=== PATIENT | male | born 1950 | race Caucasian/White ===

== ENCOUNTER 2022-01-10 10:49 | Outpatient (CLI) | payer MEDICARE, SELFPAY ==
--- NOTE | ~2022-01-10 | US_ITS ---
US renal BI 01/10/2022 11:18 Procedure: Realtime transabdominal ultrasound of the kidneys and bladder. Indication: Chronic renal disease Comparison: No prior studies for comparison. Findings: Renal echotexture is normal bilaterally without hydronephrosis, contour deforming mass or r enal calculus. The right kidney measures 9.7 cm and left kidney measures 10.9 cm. Bladder within nor mal limits. Mildly enlarged prostate gland. Impression: 1: Unremarkable renal ultrasound. No stones, masses or hydronephrosis. 2: Enlarged prostate gland. Reviewed, dictated and finalized at location A. Impression: 1: Unremarkable renal ultrasound. No stones, masses or hydronephrosis. 2: Enlarged prostate gland.
== END 2022-01-10 10:50 | disposition home or self-care (01) ==
PROVIDERS: PCP Family Medicine; Visit Provider Nurse Practitioner Gerontology
DX: N18.9 Chronic kidney disease, unspecified (principal); N40.0 Benign prostatic hyperplasia without lower urinary tract symptoms
CPT/HCPCS: 76775

== ENCOUNTER 2022-06-01 09:16 | Outpatient (CLI) | payer MEDICARE, SELFPAY ==
--- NOTE | ~2022-06-01 | XR_ITS ---
Left Knee Technique: AP, lateral, and sunrise views were obtained. Clinical History: Pain Findings: No fracture or dislocation is seen. There is mild tricompartmental degenerative change. The re is enthesopathic change at the proximal patellar tendon. No joint effusion is seen. Impression: Mild tricompartmental degenerative change. Reviewed, dictated and finalized at location . SPORTATION DIRECTOR Impression: Mild tricompartmental degenerative change.
== END 2022-06-01 09:17 | disposition home or self-care (01) ==
PROVIDERS: PCP Family Medicine; Visit Provider Family Medicine
DX: M25.569 Pain in unspecified knee (principal); R93.6 Abnormal findings on diagnostic imaging of limbs
CPT/HCPCS: 73562

== ENCOUNTER → 2022-08-09 09:52 | Outpatient (CLI) | payer MEDICARE, SELFPAY ==
--- NOTE | ~2022-08-09 | US_ITS ---
Renal-Bladder ultrasound Clinical History: Chronic kidney disease Technique: Real-time sonographic imaging of the kidneys and urinary bladder was performed. Findings: The right kidney measures 10.4 cm in length and the left kidney measures 9.8 cm. There is n o hydronephrosis or renal calculus identified. Renal cortical echogenicity is within normal limits. N o renal mass lesion is identified. The urinary bladder is moderately distended at the time of this exam. No intraluminal echoes are iden tified. No abnormal wall thickening is seen. Prostate gland is enlarged. Impression: Unremarkable ultrasound of the kidneys and urinary bladder. Enlarged prostate gland. Reviewed, dictated and finalized at location M. Impression: Unremarkable ultrasound of the kidneys and urinary bladder. Enlarged prostate gland.
== END ==
PROVIDERS: PCP Family Medicine; Visit Provider Internal Medicine Nephrology
DX: N18.31 Chronic kidney disease, stage 3a (principal); N40.0 Benign prostatic hyperplasia without lower urinary tract symptoms
CPT/HCPCS: 76775

== ENCOUNTER 2023-02-12 14:34 | Outpatient (CLI) | payer MEDICARE, SELFPAY ==
--- NOTE | ~2023-02-12 | CT_ITS ---
EXAMINATION: CT LE LT wo con DATE: 02/12/2023 15:26 INDICATION: Left knee osteoarthritis. Preoperative planning. TECHNIQUE: Computed tomography (CT) of the left lower limb was performed without intravenous contrast . Automated exposure control and iterative reconstruction technique were employed. The dose-length pr oduct was 1941.01 mGy-cm. COMPARISON: Left knee radiographs 02/07/2023 FINDINGS: The prostate is moderately enlarged. Left hip demonstrates normal bone alignment. No fractu re. There is moderate left hip osteoarthritis. Left knee demonstrates varus angulation. There is ninoska re tricompartmental osteoarthritis. There is a small knee joint effusion. There is a moderate-sized B jay's cyst. There is mild Achilles tendinopathy. IMPRESSION: 1. Severe left knee osteoarthritis. 2. Small left knee joint effusion. 3. Modest sized left Burns's cyst. 4. Moderate left hip osteoarthritis. Reviewed, dictated and finalized at location E.
[2023-02-12 16:47] LABS: Hematocrit 34.1 % (42.0-52.0); Hemoglobin 10.7 g/dL (14.0-18.0)
[2023-02-12 16:56] LABS: Albumin Level 4.5 g/dL (3.5-5.1); Estimated Glomerular Filt Rate 33
== END 2023-02-12 14:35 | disposition home or self-care (01) ==
LOC: ANHIMG 14:46
PROVIDERS: PCP Family Medicine; Visit Provider Orthopaedic Surgery
DX: M17.0 Bilateral primary osteoarthritis of knee (principal); M25.462 Effusion, left knee; M71.22 Synovial cyst of popliteal space [Baker], left knee; M16.12 Unilateral primary osteoarthritis, left hip; E11.22 Type 2 diabetes mellitus with diabetic chronic kidney disease; I12.9 Hypertensive chronic kidney disease with stage 1 through stage 4 chronic kidney disease, or unspecified chronic kidney disease; N18.32 Chronic kidney disease, stage 3b
CPT/HCPCS: 36415; 73700; 82040; 82565; 85014; 85018

== ENCOUNTER 2023-03-13 00:37 | Day surgery (SDC) | payer MEDICARE, SELFPAY ==
[2023-02-27 11:27] VITALS: BMI 28.0
--- NOTE | 2023-03-09 14:42 | SUR.PREOP ---
Patient called regarding upcoming procedure. Reviewed preop instructions, appointment times, and procedure prep.
[2023-03-13 11:20] VITALS: BP 199/75; PULSE 85; RESP 18; TEMP 36.2; O2SAT 98
--- NOTE | 2023-03-13 11:24 | WPDANESEPPF ---
Anes - Initial Pre Proc Eval Procedure: Operation Date: 03/13/23 12:30 Proposed Procedures p Esophagogastroduodenoscopy & Colonoscopy - Horacio Coelho MD Date/Time: 03/13/23 11:24 Surgeon: Horacio Coelho MD Pre Op Diagnosis: anemia Patient Data Age: 72 Gender: M Height: 1.75 m Weight: 85.9 kg Last Vital Signs Temp 97.2 F L 03/13/23 11:20 Pulse 85 03/13/23 11:20 Resp 18 03/13/23 11:20 BP 199/75 H 03/13/23 11:20 Pulse Ox 98 03/13/23 11:20 O2 Del Method Room Air 03/13/23 11:20 Allergies Allergy/AdvReac Type Severity Reaction Status Date / Time No Known Allergies Allergy Verified 03/13/23 11:18 Home Medications Medication Instructions Recorded Confirmed Type aspirin 81 mg tablet,delayed 81 mg PO DAILY 06/10/19 02/27/23 History release (Adult Low Dose Aspirin) atorvastatin 20 mg tablet 20 mg PO DAILY #100 tabs 06/23/22 02/27/23 Rx irbesartan 300 mg tablet 300 mg PO DAILY #30 tabs 12/12/22 02/27/23 Rx tamsulosin 0.4 mg capsule 0.4 mg PO QHS #30 caps 12/12/22 02/27/23 Rx levothyroxine 75 mcg tablet 75 mcg PO DAILY #100 tabs 01/01/23 02/27/23 Rx (Euthyrox) metformin 500 mg tablet 500 mg PO BID #180 tabs 01/30/23 02/27/23 Rx cholecalciferol (vitamin D3) 1,250 50,000 unit PO WEEKLY #14 caps 02/12/23 02/27/23 Rx mcg (50,000 unit) capsule polysaccharide iron complex 150 mg 150 mg PO DAILY #30 caps 02/19/23 02/27/23 Rx iron capsule (Poly-Iron) chlorthalidone 25 mg tablet 25 mg PO DAILY 02/27/23 02/27/23 History glimepiride 1 mg tablet 1 mg PO BID 02/27/23 02/27/23 History hydralazine 100 mg tablet 100 mg PO BID 02/27/23 02/27/23 History metoprolol succinate 50 mg 50 mg PO DAILY 02/27/23 02/27/23 History tablet,extended release 24 hr amlodipine 5 mg tablet 5 mg PO .in PM #30 tabs 03/05/23 03/13/23 Rx dutasteride 0.5 mg capsule 0.5 mg PO .pm #30 caps 03/05/23 03/13/23 Rx Patient hx anesthesia problems: none Family hx anesthesia problems: none Results Review: All pre-operative results and documents have been reviewed as part of the pre-operative evaluation. [facility] Past Medical History Medical History Arthropathies Benign essential HTN Bilateral cataracts Controlled diabetes mellitus with hyperglycemia Dyslipidemia History of blood clots Hyperlipidemia Surgical History Surgical History History of appendectomy History of umbilical hernia repair Family History Family History Father Acute myocardial infarction, Onset Age: 70 Mother Hypertension Other Diabetes mellitus Social History Social History Social History: Smoking status: Never smoker Second hand tobacco smoke exposure: No Alcohol intake: never Substance use: never Substance use type: does not use Lack of Transportation: No Lack of Food: Never True Current Housing: I Have Housing Concerned About Future Housing: No Difficulty Paying Gas/Electric Bills: No Difficulty Paying for Meds: No Currently Unemployed: No Education: High School Diploma/GED Difficulty w/ Childcare or Family Care: No Living arrangements: with family Occupation/Education: retired Gender identity (if verbalized by the patient): Male Sexual Orientation (if Verbalized by the Patient): Straight or Heterosexual Spiritual care concerns: No Anes - Eval Final PreProcedure Day of Procedure 03/13/23 11:24 Patient weight: normal Heart: regular rate and rhythm Lungs: clear to auscultation Airway: Mallampati scale class II Neurological: alert and oriented Last oral intake: >/= 8 hours ASA classification: III Emergent: no Anesthetic plan: proceed Anesthesia type and monitoring: general GIVS and standard monitoring Results Review: All pre-op
[2023-03-13] MEDS: LACTATED RINGERS 1,000 ML 150 ML IV CONT (11:29)
--- NOTE | 2023-03-13 11:53 | PM.HPGS ---
History of Present Illness History of Present Illness Consent: Risks, benefits, and alternatives have been discussed and questions answered. Patient agrees to proceed with procedure. Chief complaint: anemia Narrative: Reilly Jarvis Jr. is a 72 year old male with recent anemia, hgb ~ 10, no overt gib, last colonoscopy about 6 years ago, never had egd Review of Systems Constitutional: Constitutional: Denies headache(s) and Denies weakness Eyes: Eyes: Denies blurry vision ENT: Reports Normal hearing present, Denies headache(s) and Denies neck pain Cardiovascular: Cardiovascular: Denies chest pain and Denies dyspnea Respiratory: Respiratory: Denies dyspnea Gastrointestinal: Gastrointestinal: Reports no additional gastrointestinal complaints Genitourinary: Genitourinary: Denies dysuria Musculoskeletal: Musculoskeletal: Denies neck pain Integumentary/Breasts: Skin/Breast: Denies dry skin Neurologic: Reports Normal hearing present, Denies headache(s) and Denies weakness Psychiatric: Psychiatric: Denies anxiety Endocrine: Endocrine: Denies change in body appearance Hematologic/Lymphatic: Hematologic/Lymphatic: Denies easy bleeding Allergic/Immunologic: Allergic/Immunologic: Denies urticaria PMFSH Past Medical History Medical History (Updated 03/13/23 @ 11:54 by Horacio Coelho MD) Anemia Arthropathies Benign essential HTN Bilateral cataracts Controlled diabetes mellitus with hyperglycemia Dyslipidemia History of blood clots Hyperlipidemia Surgical History Surgical History History of appendectomy History of umbilical hernia repair Family History Family History Father Acute myocardial infarction, Onset Age: 70 Mother Hypertension Other Diabetes mellitus Social History Social History Social History: Smoking status: Never smoker Second hand tobacco smoke exposure: No Alcohol intake: never Substance use: never Substance use type: does not use Lack of Transportation: No Lack of Food: Never True Current Housing: I Have Housing Concerned About Future Housing: No Difficulty Paying Gas/Electric Bills: No Difficulty Paying for Meds: No Currently Unemployed: No Education: High School Diploma/GED Difficulty w/ Childcare or Family Care: No Living arrangements: with family Occupation/Education: retired Gender identity (if verbalized by the patient): Male Sexual Orientation (if Verbalized by the Patient): Straight or Heterosexual Spiritual care concerns: No Meds Home Medications and Allergies Home Medications Medication Instructions Recorded Confirmed Type aspirin 81 mg tablet,delayed 81 mg PO DAILY 06/10/19 02/27/23 History release (Adult Low Dose Aspirin) atorvastatin 20 mg tablet 20 mg PO DAILY #100 tabs 06/23/22 02/27/23 Rx irbesartan 300 mg tablet 300 mg PO DAILY #30 tabs 12/12/22 02/27/23 Rx tamsulosin 0.4 mg capsule 0.4 mg PO QHS #30 caps 12/12/22 02/27/23 Rx levothyroxine 75 mcg tablet 75 mcg PO DAILY #100 tabs 01/01/23 02/27/23 Rx (Euthyrox) metformin 500 mg tablet 500 mg PO BID #180 tabs 01/30/23 02/27/23 Rx cholecalciferol (vitamin D3) 1,250 50,000 unit PO WEEKLY #14 caps 02/12/23 02/27/23 Rx mcg (50,000 unit) capsule polysaccharide iron complex 150 mg 150 mg PO DAILY #30 caps 02/19/23 02/27/23 Rx iron capsule (Poly-Iron) chlorthalidone 25 mg tablet 25 mg PO DAILY 02/27/23 02/27/23 History glimepiride 1 mg tablet 1 mg PO BID 02/27/23 02/27/23 History hydralazine 100 mg tablet 100 mg PO BID 02/27/23 02/27/23 History metoprolol succinate 50 mg 50 mg PO DAILY 02/27/23 02/27/23 History tablet,extended release 24 hr amlodipine 5 mg tablet 5 mg PO .in PM #30 tabs 03/05/23 03/13/23 Rx dutasteride 0.5 mg capsule 0.5 mg PO .pm #30 caps 03/05/23 03/13/23 R
[2023-03-13 11:55] LABS: Glucose Point of Care 108 mg/dl (65-105)
--- NOTE | 2023-03-13 12:13 | SUR.OPER ---
EGD START: 1200; END: 1207. COLONOSCOPY START: 1212; END: 1221.
--- NOTE | 2023-03-13 12:25 | SUR.OPER ---
DESCENDING COLON POLYP NOT RETRIEVED. DR CROWELL AWARE. ML, RN RS, RN
[2023-03-13 12:27] VITALS: BP 117/67; PULSE 67; RESP 14; O2SAT 96
[2023-03-13 12:37] VITALS: BP 126/76; PULSE 68; RESP 13; O2SAT 96
[2023-03-13 12:47] VITALS: BP 151/86; PULSE 64; RESP 16; O2SAT 100
== END 2023-03-13 13:01 | disposition home or self-care (01) ==
PROVIDERS: PCP Family Medicine; Visit Provider Internal Medicine Gastroenterology
PROC: 0DJ08ZZ Inspection of Upper Intestinal Tract, Via Natural or Artificial Opening Endoscopic (ICD-10-PCS; CPT 43235; principal; 2023-03-13 12:30)
DX: D64.9 Anemia, unspecified (principal); K22.70 Barrett's esophagus without dysplasia; D12.3 Benign neoplasm of transverse colon; K57.30 Diverticulosis of large intestine without perforation or abscess without bleeding; K64.8 Other hemorrhoids; K21.00 Gastro-esophageal reflux disease with esophagitis, without bleeding; K44.9 Diaphragmatic hernia without obstruction or gangrene; Q27.33 Arteriovenous malformation of digestive system vessel; I10 Essential (primary) hypertension; E11.65 Type 2 diabetes mellitus with hyperglycemia; E78.5 Hyperlipidemia, unspecified; Z90.89 Acquired absence of other organs; Z79.82 Long term (current) use of aspirin; Z79.84 Long term (current) use of oral hypoglycemic drugs; Z86.718 Personal history of other venous thrombosis and embolism; Z82.49 Family history of ischemic heart disease and other diseases of the circulatory system
CPT/HCPCS: 43239; 43270; 45385; 82948; 88305; J2001; J2704; J7120

== ENCOUNTER 2023-04-02 11:33 | Outpatient (CLI) | payer MEDICARE, SELFPAY ==
[2023-04-02 13:06] LABS: Basophils Absolute Auto 0.1 K/mm3 (0.0-0.1); Basophils Percent Auto 0.6 % (0.2-1.2); Eosinophils Absolute Auto 0.2 K/mm3 (0-0.3); Eosinophils Percent Auto 1.7 % (0-4.4); Hemoglobin 11.7 g/dL (14.0-18.0); Immature Granulocyte Absolute 0.03 K/mm3 (0.00-0.031); Immature Granulocyte Percent A 0.3 % (0-0.5); Lymphocytes Absolute Auto 1.14 K/mm3 (0.9-3.2); Mean Corpuscular HGB Conc 31.6 g/dl (32-36); Mean Corpuscular Volume 91.8 fl (80-100); Mean Platelet Volume 11.6 fl (7.4-10.4); Monocytes Absolute Auto 0.8 K/mm3 (0.1-0.6); Neutrophils Absolute Auto 7.4 K/mm3 (1.3-6.7); Neutrophils Percent Auto 77.4 % (45.5-73.1); Platelet Count Result 231 k/mm3 (150-375); Red Blood Count 4.03 M/mm3 (4.6-6.20); Red Cell Distribution Width 12.8 % (11.5-14.5); White Blood Count 9.5 K/mm3 (4.5-10.0)
[2023-04-02 13:16] LABS: Anion Gap 9 mmol/L (8-16); Blood Urea Nitrogen 37 mg/dL (9-20); Calcium 9.8 mg/dL (8.4-10.2); Carbon Dioxide 26 mmol/L (22-30); Chloride 103 mmol/L (98-107); Estimated Glomerular Filt Rate 37; Glucose 138 mg/dL (65-110); Potassium 4.8 mmol/L (3.4-5.0); Sodium 138 mmol/L (137-145)
[2023-04-02 13:18] LABS: Albumin Level 4.7 g/dL (3.5-5.1)
[2023-04-02 13:20] LABS: Hemoglobin A1C 5.7 % (<5.7); Prothrombin Time 13.4 Seconds (11.1-14.7)
[2023-04-02 13:21] LABS: Partial Thromboplastin Time 28.9 SECONDS (22.3-36.8)
[2023-04-02 13:29] LABS: Urine Cotinine NEGATIVE
== END 2023-04-02 11:34 | disposition home or self-care (01) ==
PROVIDERS: Anesthesiology; PCP Family Medicine; Visit Provider Orthopaedic Surgery
DX: Z01.818 Encounter for other preprocedural examination (principal); M17.12 Unilateral primary osteoarthritis, left knee; E11.9 Type 2 diabetes mellitus without complications; N18.32 Chronic kidney disease, stage 3b
CPT/HCPCS: 80048; 80307; 82040; 83036; 85025; 85610; 85730; 87081

== ENCOUNTER 2023-04-26 00:57 | Day surgery (SDC) | payer MEDICARE, SELFPAY ==
[2023-04-02 11:56] VITALS: BMI 28.4
--- NOTE | 2023-04-02 12:16 | PC.NURSE ---
Report to the Outpatient Waiting Room, entrance under the green pavilion located off [facility], at time __0600 on date __04/26/23 . Planned Procedure Time: __07 . Time changes happen often and if your time is changed the preop area will call you the afternoon before. - You and your visitor will be asked to self-screen and do not enter if you have any COVID symptoms. - A mask is optional within the hospital at this time. Patients may have clear liquids (water, carbonated beverages, clear teas, apple juice) until 3 hours prior to surgery( 4:30 AM ) with a maximum of 20 ounces. - No food from midnight until time of surgery Take the following medications with a SIP of water the morning of surgery: __HYDRALAZINE,LEVOTHYROXINE,METOPROLOL DO NOT STOP ANY OF YOUR OTHER PRESCRIPTION MEDICATIONS PRIOR TO SURGERY ?EXCEPT THE FOLLOWING Medications to discontinue per physician __HOLD ASPIRIN 7 DAYS PRE OP PER DR FERNANDO .LAST DOSE 04/18/23 Please no make-up, nail bruneian, hairspray, perfume, deodorant, or body powder the day of surgery. No jewelry (including any body piercings) or valuables the day of surgery, leave them at home. Please take a shower or bath the night before, or the morning of, surgery with an antibacterial soap. Wear comfortable, loose fitting clothing. Children are encouraged to wear pajamas. - Jewelry must be removed prior to entering the operating room. Rings and piercings that are not removed may be cut off. - The hospital will not accept responsibility for valuables. - Please leave all valuables, including medications, at home the day of surgery. If you are going home after surgery, a licensed route sales delivery drivers supervisor must drive you home. - NO public transportation without another adult if you receive anesthesia. - We recommend that an adult stay with you for 24 hours following discharge. - We also recommend that you do not drive, make important decision, drink alcoholic beverages, or take any drugs that were not prescribed by your health care provider for at least 24 hours after your discharge time. For Pediatric surgeries, we recommend two adults accompany the child home. Follow any additional instructions given to you from your surgeon. If you or anyone in your household have experienced Covid symptoms in the past week, please notify your surgeon or the nurse liaison at the phone number below for possible testing. VERBAL AND WRITTEN instructions given to _PATIENT AND CAROL and asked if any additional questions and then verbalized understanding. Patient advised to call surgeon office or pre surgery nurse liaison [phone] if any additional questions.
[2023-04-02 12:39] VITALS: BP 157/65; PULSE 68; RESP 18; TEMP 36.6; O2SAT 99
[2023-04-26] VITALS (16 sets, daily range): BP systolic 103–160; BP diastolic 52–65; PULSE 71–89; RESP 12–20; TEMP 36.3–37.1; O2SAT 93–100
--- NOTE | ~2023-04-26 | XR_ITS ---
EXAMINATION: [id number] DATE: 04/26/2023 10:20 INDICATION: Postoperative evaluation following left total knee arthroplasty. TECHNIQUE: Anteroposterior and lateral views of the left knee were obtained. COMPARISON: None. FINDINGS: Left total knee arthroplasty without patellar resurfacing appears well seated. There is 7 degree varu s angulation of the axis of the tibia with respect to the axis of the tibial component of the arthrop lasty. No fractures identified. Prominent heterotopic ossicle at the proximal patellar tendon. Expect ed postoperative subcutaneous and intra-articular gas. IMPRESSION: 1. No fracture post left total knee arthroplasty. Reviewed, dictated and finalized at location A. AT CRYPTOLOGIC MANAGER
--- NOTE | 2023-04-26 06:45 | WPDANESEPPF ---
Anes - Initial Pre Proc Eval Procedure: Operation Date: 04/26/23 07:30 Proposed Procedures p Left Custom Total Knee Arthroplasty - Jorge L Sanford MD Date/Time: 04/26/23 06:45 Surgeon: Jorge L Sanford MD Pre Op Diagnosis: Prim O.A.Left Knee Patient Data Age: 72 Gender: M Height: 1.75 m Weight: 87.3 kg Last Vital Signs Temp 36.6 C 04/02/23 12:39 Pulse 68 04/02/23 12:39 Resp 18 04/02/23 12:39 BP 157/65 H 04/02/23 12:39 Pulse Ox 99 04/02/23 12:39 O2 Del Method Room Air 04/02/23 12:39 Allergies Allergy/AdvReac Type Severity Reaction Status Date / Time No Known Allergies Allergy Verified 04/24/23 13:28 Home Medications Medication Instructions Recorded Confirmed Type aspirin 81 mg tablet,delayed 81 mg PO HS 06/10/19 04/24/23 History release (Adult Low Dose Aspirin) levothyroxine 75 mcg tablet 75 mcg PO DAILY #100 tabs 01/01/23 04/24/23 Rx (Euthyrox) cholecalciferol (vitamin D3) 1,250 50,000 unit PO WEEKLY #14 caps 02/12/23 04/24/23 Rx mcg (50,000 unit) capsule chlorthalidone 25 mg tablet 25 mg PO DAILY 02/27/23 04/24/23 History glimepiride 1 mg tablet 1 mg PO BID 02/27/23 04/24/23 History metoprolol succinate 50 mg 50 mg PO DAILY 02/27/23 04/24/23 History tablet,extended release 24 hr amlodipine 5 mg tablet 5 mg PO .in PM #30 tabs 03/05/23 04/24/23 Rx dutasteride 0.5 mg capsule 0.5 mg PO .pm #30 caps 03/05/23 04/24/23 Rx omeprazole 40 mg capsule,delayed 40 mg PO .daily #30 caps 03/13/23 04/24/23 Rx release acetaminophen 500 mg capsule 500 mg PO Q6H PRN Pain 04/02/23 04/24/23 History irbesartan 300 mg tablet See Rx Instructions .Route 04/02/23 04/24/23 Rx .COMPLEX #90 tabs tamsulosin 0.4 mg capsule See Rx Instructions .Route 04/02/23 04/24/23 Rx .COMPLEX #90 caps hydralazine 100 mg tablet See Rx Instructions .Route 04/05/23 04/24/23 Rx .COMPLEX #180 tabs polysaccharide iron complex 150 mg 150 mg PO DAILY #30 caps 04/12/23 04/24/23 Rx iron capsule (Poly-Iron) atorvastatin 20 mg tablet See Rx Instructions .Route 04/22/23 04/24/23 Rx .COMPLEX #100 tabs metformin 500 mg tablet See Rx Instructions .Route 04/25/23 Rx .COMPLEX #180 tabs Patient hx anesthesia problems: none Family hx anesthesia problems: none Results Review: All pre-operative results and documents have been reviewed as part of the pre-operative evaluation. [facility] Past Medical History Medical History Anemia Arthropathies Benign essential HTN Bilateral cataracts Controlled diabetes mellitus with hyperglycemia Dyslipidemia History of blood clots Hyperlipidemia Surgical History Surgical History History of appendectomy History of umbilical hernia repair Family History Family History Father Acute myocardial infarction, Onset Age: 70 Mother Hypertension Other Diabetes mellitus Social History Social History Social History: Smoking status: Never smoker Second hand tobacco smoke exposure: No Additional smoking assessment comments: DENIES ANY FORM OF TOBACCO USE Alcohol intake: never Substance use: never Substance use type: does not use Do You Feel Safe in your Home?: Yes Lack of Transportation: No Lack of Food: Never True Current Housing: I Have Housing Concerned About Future Housing: No Difficulty Paying Gas/Electric Bills: No Difficulty Paying for Meds: No Currently Unemployed: No Education: High School Diploma/GED Difficulty w/ Childcare or Family Care: No Living arrangements: with family Occupation/Education: retired Gender identity (if verbalized by the patient): Male Sexual Orientation (if Verbalized by the Patient): Straight or Heterosexual Spiritual care concerns: No A
[2023-04-26] MEDS: ACETAMINOPHEN 500 MG TABLET 1000 MG PO ×3 (06:48→17:04)
[2023-04-26] MEDS: LACTATED RINGERS 1,000 ML 30 ML IV CONT ×2 (06:50→09:39)
[2023-04-26] MEDS: TRANEXAMIC ACID 1,000MG/ISO100 1,000 MG/100 ML BAG 200 MG IVPB (06:55)
[2023-04-26 07:02] LABS: Glucose Point of Care 92 mg/dl (65-105)
--- NOTE | 2023-04-26 07:14 | WPDHPUPDATE1 ---
History and Physical Update Update Date/Time: 04/26/23 07:14 History and Physical has been reviewed, including an updated exam of the patient. There are NO changes in the patient's condition. Risks, benefits, and alternatives have been discussed and questions answered. Patient agrees to proceed with procedure.
--- NOTE | 2023-04-26 07:21 | WPDANESPNB ---
Anes - Peripheral Nerve Block Date/Time: 04/26/23 07:21 I have discussed with the patient/family/POA the placement of a peripheral nerve block for post-operative pain management, including associated risks, benefits, complications, and side effects. Alternative methods of post-operative analgesia were detailed. Questions were solicited and answers provided to the satisfaction of the patient/family/POA. Time-Out: A pre-procedural Time-Out was completed immediately before starting the procedure and confirmed: Patient Identification, Site, Procedure, Patient Position and the Availability of Requisite Equipment. Clinical Indications: Acute post-operative pain management requested by the operative surgeon. Nerve Block Insertion Note Anes-nerve block: adductor canal left Patient position: supine Skin prep: chlorhexidine Needle: 22 gauge, stimulating, insulated echogenic needle. Needle length: 80 mm Technique: ultrasound Injectate: bupivacaine 0.5% with epi 5 mcg/ml Observations: tolerated well Complications: none Procedure start time:: 714 Procedure end time:: 719
[2023-04-26] MEDS: ceFAZolin 2 GM/D5W 50 ML 2 GM/50 ML BAG IVPB ×2 (07:27→17:03)
[2023-04-26] MEDS: GENTAMICIN BONE CEMENT REFOBACIN 1 EACH TOPICAL (08:06)
[2023-04-26 09:53] LABS: Glucose Point of Care 206 mg/dl (65-105)
--- NOTE | 2023-04-26 10:03 | W.PM.PROC2 ---
Procedure Note - Detailed Date of Procedure 04/26/23 Pre-op Diagnosis Prim O.A.Left Knee Post-op Diagnosis Same Procedure Performed Total knee arthroplasty, left Surgeon Jorge L Sanford MD Dispatcher Tow Truck Radha Hardy PA-C Anesthesia General and Regional (Subsartorial block.) Findings Preoperative varus thrust and contracture required moderately large medial release. Description of Procedure Preoperative antibiotics were given. The limb was prepped and draped in the usual sterile fashion with a well-padded tourniquet high on the thigh. The limb was exsanguinated and the tourniquet inflated to 300 mmHg. A longitudinal incision was created just medial to the patella. A trivector approach to the knee was performed. Arthrotomy was taken down through the joint capsule. No significant releases were initially taken. The femur was exposed and the F1 jig was applied. The coring tool was used to remove the cartilage for the F2 jig to sit flush with the bone. The jig was pinned and the distal cut carefully taken. Caliper measurements confirmed appropriate bony resections according to the preoperative templated plan. The F4 cutting jig for the femur was applied, at the standard rotation. The AP and anterior chamfer cuts were taken. The F5 jig was applied and the posterior chamfer cuts were taken. The tibia was prepared using the T1 jig, after removing cartilage for the jig contact points. Proper alignment was checked with the alignment andre. The tibia was cut using the T1u guide. Gap balancing was performed. Gap measurements were taken and the knee was trialed. Excellent alignment and soft tissue balancing was confirmed. The posterior cruciate ligament was recessed along the proximal tibia. Meniscal remnants were removed. The trial components were assembled. Excellent range of motion and proper soft tissue balancing were confirmed throughout the full range of motion. Patellar tracking was excellent. The knee was copiously irrigated periodically throughout the procedure. The real implants were cemented into position. Excess cement was carefully removed. The wound was closed in layers with interrupted #1 Vicryl suture, #2 strata fix suture, 2-0 strata fix suture, 3-0 strata fix suture. Steri-Strips placed on the skin with the knee flexed. Sterile bulky dressing applied. The patient was brought to the recovery room in stable condition. There were no complications. Physician office assistant, Radha Pisarski, PA-C, required for surgery; including patient positioning, draping, tissue retraction, maintaining instrument position, cement removal, wound closure, and dressing placement. Implants Conform[employer] Imprint total knee arthroplasty. Cemented. Cruciate retaining. 6 mm insert. Estimated Blood Loss 20 Drains No Complications No immediate complications Condition Stable Disposition PACU [facility] Billing Surgery - Charge Forward: Surgery Billing
--- NOTE | 2023-04-26 10:08 | SUR.PHASEI ---
1008 - dr moncada aware of accucheck of 206. no orders received
--- NOTE | 2023-04-26 11:30 | ADMGEN ---
This patient, Reilly Jarvis Jr., was admitted to [facility] Surg Room 305-01. Patient/family oriented to hospital policies and general routines including ID bracelet, bed and alarms, visiting hours, pain management, procedures, bathroom and other care routines, personal items, smoking policy, room service/diet, and visiting hours. Information on how to activate the Rapid Response Team has been discussed. Patient/Family are encouraged to report perceived risks to care and to ask questions if they do not understand what they are told or what they should do.
[2023-04-26] MEDS: IRBESARTAN 150 MG TABLET PO (13:45)
[2023-04-26] MEDS: SODIUM CHLORIDE 0.9% IV 1,000 ML 125 ML IV CONT (13:45)
--- NOTE | 2023-04-26 14:31 | PM.IMCN ---
Assessment and Plan Assessment and plan (1) Status post total left knee replacement: Code(s): Z96.652 - Presence of left artificial knee joint Status: Acute Assessment and Plan: S/P Total L knee arthroplasty on 04/26/23, primary management by ortho team, and anticipated d/c tomorrow 04/27. ambulate with assistance and up to chair continuous cool therapy use IS neurovasc checks - see order for intervals SCDs resume diet pain management zofran PRN for nausea monitor labs in AM - CBC and BMP bowel regimen: docusate/senna, polyethylene glycol (2) Stage 3b chronic kidney disease: Code(s): N18.32 - Chronic kidney disease, stage 3b Status: Acute Assessment and Plan: Creatinine 1.63 on 04/17, baseline ranges from 1.55-2.0 in the last year. cleared by nephrology for surgery. repeat BMP tomorrow. NS 125 ml/hr x8 hrs. (3) Diabetes mellitus: Code(s): E11.9 - Type 2 diabetes mellitus without complications Status: Acute Assessment and Plan: Hypoglycemia protocol POC blood glucose ACHS home medication resumed/held - hold metformin, continued glimepiride correct regimen ordered - low dose TIDWM and HS (4) Chronic anemia: Code(s): D64.9 - Anemia, unspecified Status: Acute Assessment and Plan: chronic anemia at baseline. hgb currently 11.7 on 04/02, baseline has been 10.7-12.9 in 2022. monitor. (5) Hypothyroidism (acquired): Code(s): E03.9 - Hypothyroidism, unspecified Status: Acute Assessment and Plan: continue home levothyroxine. TSH 2.74 on 05/24/22. no current symptoms concerning that dose needs adjustment. (6) Hyperlipidemia: Qualifiers: Hyperlipidemia type: mixed hyperlipidemia Qualified Code(s): E78.2 - Mixed hyperlipidemia Code(s): E78.5 - Hyperlipidemia, unspecified Status: Acute Assessment and Plan: home statin resumed. (7) Benign essential HTN: Code(s): I10 - Essential (primary) hypertension Status: Chronic Assessment and Plan: home chlorthalidone, irbesartan, metoprolol and amlodipine restarted. Hydralazine held. BP currently 140/64, may resume hydralazine if BP becomes elevated through the evening. monitor. Plan Home Meds/Chronic Conditions - continue flomax and avodart Diet: regular GI Prophylaxis: famotidine DVT Prophylaxis: SCDs, TEDs, and starting Xarelto on 04/27/23 Lines: pIV Code Status: Full Code HPI Date of Consult Consult date: 04/26/23 Requesting Physician: Jorge L Sanford MD Primary Care Provider: Shawnee Morris MD Consult Narrative Reason for consult: Medical Managment Narrative: Reilly Jarvis Jr. is a 72 year old male presented here for a total L knee arthroplasty. Patient began having pain in his left knee starting in April 2021. Reported knee crepitus, pain with walking, Pain with using stairs, pain with initiation of movements, and alteration in gait (straight leg walk). Pain was primarily anterior. Also reports mild to moderate pain in right knee. 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 Trialed on NSAIDs, injections and PT. Had some benefit with injections and PT but due to interference with mobility/daily activities, the patient elected to move forward with surgical management. Patient had total knee arthroplasty performed on 04/26/22 by MD Juvenal. No immediate post-op complications. denies any postop nausea or vomiting. Reports mild achiness to left knee with improvement with cold application. No recent changes in medications. Recently had eye surgery for a torn left retina want to add ago with residual poor vision now. No other complaints. Review of Systems Review of Systems: All systems reviewed & are unremarkable except as noted in HPI and below PMFSH Past Medical History Medical History Anemia Arthropathies Benign
[2023-04-26] MEDS: traMADol HCL (*CRX) 50 MG TABLET PO (15:14)
[2023-04-26 16:18] LABS: Glucose Point of Care 208 mg/dl (65-105)
[2023-04-26] MEDS: amLODIPine BESYLATE 5 MG TABLET PO (17:04)
[2023-04-26] MEDS: PANTOPRAZOLE 40 MG TABLET PO (17:04)
[2023-04-26] MEDS: SENNA/DOCUSATE SODIUM TABLET 2 TAB PO (17:04)
[2023-04-26] MEDS: DUTASTERIDE 0.5 MG CAPSULE PO (17:04)
[2023-04-26] MEDS: GLIMEPIRIDE 1 MG TABLET PO (17:04)
[2023-04-26] MEDS: FAMOTIDINE 20 MG TABLET PO (20:47)
[2023-04-26] MEDS: TAMSULOSIN HCL 0.4 MG CAPSULE PO (20:47)
[2023-04-26] MEDS: ASPIRIN 81 MG ENTERIC TABLET PO (20:47)
[2023-04-26] MEDS: INSULIN ASPART (*BKC) 100 UNITS/ML SUB-Q (21:06)
[2023-04-27] MEDS: ACETAMINOPHEN 500 MG TABLET 1000 MG PO ×2 (00:15→05:57)
[2023-04-27] MEDS: ceFAZolin 2 GM/D5W 50 ML 2 GM/50 ML BAG IVPB ×2 (00:16→09:09)
[2023-04-27 00:58] VITALS: BP 160/61; PULSE 76; RESP 20; TEMP 36.3; O2SAT 98
[2023-04-27 05:09] VITALS: BP 163/73; PULSE 77; RESP 18; TEMP 36.7; O2SAT 97
[2023-04-27 05:43] LABS: Basophils Percent Auto 0.3 % (0.2-1.2); Eosinophils Percent Auto 0.2 % (0-4.4); Hemoglobin 9.2 g/dL (14.0-18.0); Immature Granulocyte Absolute 0.04 K/mm3 (0.00-0.031); Immature Granulocyte Percent A 0.3 % (0-0.5); Lymphocytes Absolute Auto 0.86 K/mm3 (0.9-3.2); Lymphocytes Percent Auto 7.4 % (18.3-44.2); Mean Corpuscular HGB Conc 30.7 g/dl (32-36); Mean Corpuscular Hemoglobin 28.6 pg (26-34); Mean Corpuscular Volume 93.2 fl (80-100); Mean Platelet Volume 11.6 fl (7.4-10.4); Monocytes Absolute Auto 1.3 K/mm3 (0.1-0.6); Monocytes Percent Auto 11.1 % (2.6-8.5); Neutrophils Absolute Auto 9.3 K/mm3 (1.3-6.7); Neutrophils Percent Auto 80.7 % (45.5-73.1); Platelet Count Result 188 k/mm3 (150-375); Red Blood Count 3.22 M/mm3 (4.6-6.20); Red Cell Distribution Width 12.7 % (11.5-14.5); White Blood Count 11.6 K/mm3 (4.5-10.0)
[2023-04-27] MEDS: LEVOTHYROXINE SODIUM 75 MCG TABLET PO (05:58)
[2023-04-27 06:03] LABS: Anion Gap 10 mmol/L (8-16); Blood Urea Nitrogen 32 mg/dL (9-20); Calcium 8.9 mg/dL (8.4-10.2); Carbon Dioxide 23 mmol/L (22-30); Chloride 108 mmol/L (98-107); Estimated CRCL calculation 32 ml/min; Estimated Glomerular Filt Rate 35; Glucose 88 mg/dL (65-110); Potassium 4.3 mmol/L (3.4-5.0); Sodium 141 mmol/L (137-145)
[2023-04-27 07:39] LABS: Glucose Point of Care 262 mg/dl (65-105)
[2023-04-27 07:40] LABS: Glucose Point of Care 92 mg/dl (65-105)
--- NOTE | 2023-04-27 08:17 | P.PNAN_ITS ---
Anes - Prog Note Post-Op Date/Time: 04/27/23 08:17 Cardiovascular status: normal Respiratory status: normal Airway patency: baseline Mental status: baseline Post-Op hydration status: normal Vital Signs: Last Vital Signs Temp 36.7 C 04/27/23 05:09 Pulse 77 04/27/23 05:09 Resp 18 04/27/23 05:09 BP 163/73 H 04/27/23 05:09 Pulse Ox 97 04/27/23 05:09 O2 Del Method Room Air 04/26/23 15:10 O2 Flow Rate 8 04/26/23 09:50 Pain Score (VAS): 06/02 I/O: Intake & Output 04/26/23 04/27/23 04/27/23 23:59 07:59 15:59 Intake Total 290 600 Output Total 900 Balance -610 600 Laboratory Tests 04/27/23 05:21 04/27/23 05:21 04/26/23 04/26/23 04/26/23 09:44 16:15 20:16 WBC RBC Hgb Hct MCV MCH MCHC RDW Plt Count MPV Immature Gran % (Auto) Neut % (Auto) Lymph % (Auto) [place] % (Auto) Eos % (Auto) Baso % (Auto) Lymph # (Auto) [place] # (Auto) Eos # (Auto) Baso # (Auto) Abs Immat Gran (auto) Absolute Neuts (auto) Absolute Nucleated RBC Nucleated RBC % Sodium Potassium Chloride Carbon Dioxide Anion Gap BUN Creatinine Estim Creat Clear Calc Estimated GFR Glucose POC Capillary Glucose 206 H 208 H 262 H Calcium 04/27/23 04/27/23 05:21 07:38 WBC 11.6 H RBC 3.22 L Hgb 9.2 L Hct 30.0 L MCV 93.2 MCH 28.6 MCHC 30.7 L RDW 12.7 Plt Count 188 MPV 11.6 H Immature Gran % (Auto) 0.3 Neut % (Auto) 80.7 H Lymph % (Auto) 7.4 L [place] % (Auto) 11.1 H Eos % (Auto) 0.2 Baso % (Auto) 0.3 Lymph # (Auto) 0.86 L [place] # (Auto) 1.3 H Eos # (Auto) 0.0 Baso # (Auto) 0.0 Abs Immat Gran (auto) 0.04 H Absolute Neuts (auto) 9.3 H Absolute Nucleated RBC 0.0 Nucleated RBC % 0.0 Sodium 141 Potassium 4.3 Chloride 108 H Carbon Dioxide 23 Anion Gap 10 BUN 32 H Creatinine 1.90 H Estim Creat Clear Calc 32 Estimated GFR 35 L Glucose 88 POC Capillary Glucose 92 Calcium 8.9 Post-procedural complaints: none Patient Feedback: Patient satisfied with anesthetic care.
--- NOTE | 2023-04-27 08:26 | PM.DS ---
DS: Admitting Diagnosis Discharge Date 04/27/22 Admitting Diagnosis OA knee Left DS: Discharge Diagnosis Discharge Diagnosis (1) Status post total left knee replacement: Code(s): Z96.652 - Presence of left artificial knee joint Status: Acute Assessment and Plan: Postop day 1: Left total knee arthroplasty. Patient tolerated procedure well. No complications. Pain manageable with pain medication. No numbness or tingling. We had a lengthy discussion regarding postoperative wound care, limitations, expectations, and exercises. Patient shows good understanding. He has had initial physical therapy and is tolerating it well. DVT prophylaxis: Continue 81 mg baby aspirin. Xerelto. He has a history of Blood clot in the left leg [address] him on Xeralto. If unable to afford, WIll try Lovenox shots for 30 days. Pain medication: Percocet. Prednisone. Patient has followup appointment with Dr. Sanford in 3 weeks. DS: Summary Hospital Course Reason for hospitalization: Total knee arthroplasty Hospital Course: Patient tolerated procedure well. Has had initial PT/OT. Status at Discharge Functional status at discharge: uses cane/walker Overall status at discharge: patient is progressing back to baseline Time Spent with Patient Time attestation: Total time spent providing and/or coordinating discharge services: Exam Narrative: 72-year-old overweight female. Resting comfortably in chair. Alert and oriented x3. No acute distress. Wearing compression socks bilaterally. Dressing intact without drainage. Moderate swelling. Mild ecchymosis. No erythema. No hematoma. Range of motion limited due to pain. Calf nontender. Neurologic status intact. No varicosities. Distal pulses palpable. DS: Data Data Completed and Pending Labs on day of discharge: Labs from last 24 hours 04/27/23 04/27/23 04/26/23 07:38 05:21 20:16 WBC 11.6 H RBC 3.22 L Hgb 9.2 L Hct 30.0 L MCV 93.2 MCH 28.6 MCHC 30.7 L RDW 12.7 Plt Count 188 MPV 11.6 H Immature Gran % (Auto) 0.3 Neut % (Auto) 80.7 H Lymph % (Auto) 7.4 L [place] % (Auto) 11.1 H Eos % (Auto) 0.2 Baso % (Auto) 0.3 Lymph # (Auto) 0.86 L [place] # (Auto) 1.3 H Eos # (Auto) 0.0 Baso # (Auto) 0.0 Abs Immat Gran (auto) 0.04 H Absolute Neuts (auto) 9.3 H Absolute Nucleated RBC 0.0 Nucleated RBC % 0.0 Sodium 141 Potassium 4.3 Chloride 108 H Carbon Dioxide 23 Anion Gap 10 BUN 32 H Creatinine 1.90 H Estim Creat Clear Calc 32 Estimated GFR 35 L Glucose 88 POC Capillary Glucose 92 262 H Calcium 8.9 04/26/23 04/26/23 16:15 09:44 WBC RBC Hgb Hct MCV MCH MCHC RDW Plt Count MPV Immature Gran % (Auto) Neut % (Auto) Lymph % (Auto) [place] % (Auto) Eos % (Auto) Baso % (Auto) Lymph # (Auto) [place] # (Auto) Eos # (Auto) Baso # (Auto) Abs Immat Gran (auto) Absolute Neuts (auto) Absolute Nucleated RBC Nucleated RBC % Sodium Potassium Chloride Carbon Dioxide Anion Gap BUN Creatinine Estim Creat Clear Calc Estimated GFR Glucose POC Capillary Glucose 208 H 206 H Calcium Discharge Plan Discharge Patient Disposition: Home, Self-Care Discharge Instructions: See green instruction sheets Stand Alone Forms: General Discharge Instructions Follow-up/Referrals: Radha Hardy PA [Physician Continuing Education Instructor] - Discharge Medications: New prednisone 5 mg tablet 5 mg PO DAILY 21 Days Qty: 21 0RF oxycodone-acetaminophen 5-325 mg tablet 1 - 2 tablet PO Q4-6H MDD 6 PRN (Reason: pain) Qty: 30 0RF Xarelto 10 mg tablet 10 mg PO DAILY 30 Days Qty: 30 0RF Continued aspirin [Adult Low Dose Aspirin] 81 mg tablet,delayed release (DR/EC) 81 mg PO HS metformin 500 mg tablet 500 mg PO BID atorvastatin 20 mg tablet
[2023-04-27] MEDS: FAMOTIDINE 20 MG TABLET PO (09:10)
[2023-04-27] MEDS: predniSONE 5 MG TABLET PO (09:10)
[2023-04-27] MEDS: CHLORTHALIDONE 25 MG TABLET PO (09:10)
[2023-04-27] MEDS: RIVAROXABAN 10 MG TABLET PO (09:10)
[2023-04-27] MEDS: SENNA/DOCUSATE SODIUM TABLET 2 TAB PO (09:10)
[2023-04-27] MEDS: ATORVASTATIN 20 MG TABLET PO (09:10)
[2023-04-27] MEDS: GLIMEPIRIDE 1 MG TABLET PO (09:10)
[2023-04-27] MEDS: METOPROLOL SUCCINATE EXT REL 50 MG TABCR PO (09:11)
[2023-04-27] MEDS: polyethylene glycoL 3350 17 GM POWD.PACK PO (09:11)
[2023-04-27] MEDS: traMADol HCL (*CRX) 50 MG TABLET PO (09:11)
[2023-04-27] MEDS: IRBESARTAN 150 MG TABLET PO (09:11)
[2023-04-27] MEDS: PANTOPRAZOLE 40 MG TABLET PO (09:14)
--- NOTE | 2023-04-27 11:08 | PM.IMCN ---
Assessment and Plan Assessment and plan (1) Status post total left knee replacement: Code(s): Z96.652 - Presence of left artificial knee joint Status: Acute Assessment and Plan: POD 1 Total L knee arthroplasty on 04/26/23, primary management by ortho team, d/c home today pain management PT outpatient (2) Stage 3b chronic kidney disease: Code(s): N18.32 - Chronic kidney disease, stage 3b Status: Chronic Assessment and Plan: Creatinine 1.63 on 04/17, baseline ranges from 1.55-2.0 in the last year. cleared by nephrology for surgery. repeat BMP 05/28 - creatinine 1.90, eGFR 35 near avg baseline (3) Diabetes mellitus: Code(s): E11.9 - Type 2 diabetes mellitus without complications Status: Chronic Assessment and Plan: home medication resumed (4) Chronic anemia: Code(s): D64.9 - Anemia, unspecified Status: Chronic Assessment and Plan: chronic anemia at baseline. hgb currently 11.7 on 04/02 9.2/30 today 1 day post surgery. (5) Hypothyroidism (acquired): Code(s): E03.9 - Hypothyroidism, unspecified Status: Chronic Assessment and Plan: continue home levothyroxine. (6) Hyperlipidemia: Qualifiers: Hyperlipidemia type: mixed hyperlipidemia Qualified Code(s): E78.2 - Mixed hyperlipidemia Code(s): E78.5 - Hyperlipidemia, unspecified Status: Chronic Assessment and Plan: continue home statin (7) Benign essential HTN: Code(s): I10 - Essential (primary) hypertension Status: Chronic Assessment and Plan: resume home chlorthalidone, irbesartan, metoprolol and amlodipine HPI Date of Consult Consult date: 04/27/23 Requesting Physician: Jorge L Sanford MD Primary Care Provider: Shawnee Morris MD Consult Narrative Narrative: Reilly Jarvis Jr. is a 72 year old male here for a total L knee arthroplasty. Patient is POD 1 for left total knee arthroplasty performed on 04/26/22 by MD Juvenal. Reporting pain is controlled, denies n/v. Tolerating regular diet, passing gas. Will continue PT outpatient. Ortho has cleared and discharge orders on place. Medically he is stable for d/c today. Review of Systems Review of Systems: All systems reviewed & are unremarkable except as noted in HPI and below PMFSH Past Medical History Medical History Anemia Arthropathies Benign essential HTN Bilateral cataracts Controlled diabetes mellitus with hyperglycemia Dyslipidemia History of blood clots Hyperlipidemia Retinal detachment s/p repair 2022 Surgical History Surgical History History of appendectomy History of umbilical hernia repair Family History Family History Father Acute myocardial infarction, Onset Age: 70 Mother Hypertension Other Diabetes mellitus Social History Social History Social History: Smoking status: Never smoker Second hand tobacco smoke exposure: No Additional smoking assessment comments: DENIES ANY FORM OF TOBACCO USE Alcohol intake: never Substance use: never Substance use type: does not use Do You Feel Safe in your Home?: Yes Lack of Transportation: No Lack of Food: Never True Current Housing: I Have Housing Concerned About Future Housing: No Difficulty Paying Gas/Electric Bills: No Difficulty Paying for Meds: No Currently Unemployed: No Education: High School Diploma/GED Difficulty w/ Childcare or Family Care: No Living arrangements: with family Occupation/Education: retired Gender identity (if verbalized by the patient): Male Sexual Orientation (if Verbalized by the Patient): Straight or Heterosexual Spiritual care c
== END 2023-04-27 11:20 | disposition home or self-care (01) ==
LOC: ANHSURGERY 07:17 → ANH3MEDSUR 04-27 10:30
PROVIDERS: Physician Assistant Surgical; PCP Family Medicine; Visit Provider Orthopaedic Surgery
PROC: (CPT 27447; principal; 2023-04-26 07:30)
DX: M17.12 Unilateral primary osteoarthritis, left knee (principal); I12.9 Hypertensive chronic kidney disease with stage 1 through stage 4 chronic kidney disease, or unspecified chronic kidney disease; E11.22 Type 2 diabetes mellitus with diabetic chronic kidney disease; N18.32 Chronic kidney disease, stage 3b; E78.5 Hyperlipidemia, unspecified; D64.9 Anemia, unspecified; E03.9 Hypothyroidism, unspecified; G89.18 Other acute postprocedural pain
CPT/HCPCS: 27447; 64447; 36415; 73560; 80048; 82948; 85025; 86850; 86900; 86901; 97110; 97116; 97161; 97165; 97530; 97535; A9270; C1713; C1776; J0171; J0690; J1100; J1815; J1885; J2250; J2270; J2371; J2405; J2704; J2795; J3010; J7030; J7120; J7512

== ENCOUNTER 2023-06-14 12:31 | Outpatient (CLI) | payer MEDICARE, SELFPAY ==
--- NOTE | ~2023-06-14 | XR_ITS ---
Left Knee Technique: AP, lateral, and sunrise views were obtained. Clinical History: Prosthesis COMPARISON: 05/16/2023 Findings: No fracture or dislocation is seen. Left knee arthroplasty is unchanged. Soft tissues are u nremarkable. No joint effusion is seen. Impression: No acute abnormality. Stable left knee arthroplasty. Reviewed, dictated and finalized at location . GER LICENSING Impression: No acute abnormality. Stable left knee arthroplasty.
== END 2023-06-14 12:32 | disposition home or self-care (01) ==
LOC: ANHIMG 12:34
PROVIDERS: PCP Family Medicine; Visit Provider Orthopaedic Surgery
DX: Z47.1 Aftercare following joint replacement surgery (principal)
CPT/HCPCS: 73562

== ENCOUNTER 2023-09-27 13:27 | Outpatient (CLI) | payer MEDICARE, SELFPAY ==
--- NOTE | ~2023-09-27 | CT_ITS ---
EXAMINATION: CT LE RT wo con DATE: 09/27/2023 13:51 INDICATION: Unilateral primary osteoarthritis, right knee. Preoperative planning. TECHNIQUE: Computed tomography (CT) of the right lower limb was performed without intravenous contras t. Automated exposure control and iterative reconstruction technique were employed. The dose-length p roduct was 1850.42 mGy-cm. COMPARISON: Right knee radiographs 09/05/2023 FINDINGS: There is moderate osteoarthritis of the hips. There is varus angulation at right knee. Righ t knee demonstrates severe osteoarthritis of the medial and patellofemoral compartments and mild oste oarthritis of lateral compartment. There is a small knee joint effusion. There is mild midfoot osteoa rthritis. IMPRESSION: 1. Severe right knee osteoarthritis. 2. Small right knee joint effusion. Reviewed, dictated and finalized at location A.
== END 2023-09-27 13:28 | disposition home or self-care (01) ==
PROVIDERS: PCP Family Medicine; Visit Provider Orthopaedic Surgery
DX: M17.11 Unilateral primary osteoarthritis, right knee (principal); M25.461 Effusion, right knee
CPT/HCPCS: 36415; 73700; 85610; 85730

== ENCOUNTER 2023-09-27 13:36 | Outpatient (CLI) | payer MEDICARE, SELFPAY ==
[2023-09-27 15:09] LABS: INR 1.1; Prothrombin Time 14.4 Seconds (11.1-14.7)
[2023-09-27 15:10] LABS: Partial Thromboplastin Time 30.3 Seconds (22.3-36.8)
== END 2023-09-27 13:37 | disposition home or self-care (01) ==
PROVIDERS: Anesthesiology; PCP Family Medicine; Visit Provider Orthopaedic Surgery
DX: Z01.818 Encounter for other preprocedural examination (principal); N18.32 Chronic kidney disease, stage 3b
CPT/HCPCS: 36415; 85610; 85730

== ENCOUNTER 2023-10-09 00:20 | Day surgery (SDC) | payer MEDICARE, SELFPAY ==
[2023-09-26 13:25] VITALS: BMI 28.0
--- NOTE | 2023-09-26 13:56 | PC.NURSE ---
Report to the Outpatient Waiting Room, entrance under the green pavilion located off [facility], at time ___10:30AM____ on date __10/09/23 . Planned Procedure Time: __12:30PM . Time changes happen often and if your time is changed the preop area will call you the afternoon before. - You and your visitor will be asked to self-screen and do not enter if you have any COVID symptoms. - A mask is optional within the hospital at this time. Patients may have clear liquids (water, carbonated beverages, clear teas, apple juice) until 3 hours prior to surgery with a maximum of 20 ounces. - No food from midnight until time of surgery. Take the following medications with a SIP of water the morning of surgery: AMLODIPINE, HYDRALAZINE DO NOT STOP ANY OF YOUR OTHER PRESCRIPTION MEDICATIONS PRIOR TO SURGERY ?EXCEPT THE FOLLOWING Medications to discontinue per physician HOLD ASPIRIN 7 DAYS PRE-OP PER DR FERNANDO- LAST DOSE 10/01/23 HOLD ALL VITAMINS/SUPPLEMENTS 3 DAYS PRE-OP - LAST DOSE 10/05/23. Please no make-up, nail barbadian, hairspray, perfume, deodorant, or body powder the day of surgery. No jewelry (including any body piercings) or valuables the day of surgery, leave them at home. Please take a shower or bath the night before, or the morning of, surgery with an antibacterial soap. Wear comfortable, loose fitting clothing. - Jewelry must be removed prior to entering the operating room. Rings and piercings that are not removed may be cut off. - The hospital will not accept responsibility for valuables. - Please leave all valuables, including medications, at home the day of surgery. If you are going home after surgery, a licensed jinriksha driver must drive you home. - NO public transportation without another adult if you receive anesthesia. - We recommend that an adult stay with you for 24 hours following discharge. - We also recommend that you do not drive, make important decision, drink alcoholic beverages, or take any drugs that were not prescribed by your health care provider for at least 24 hours after your discharge time. Follow any additional instructions given to you from your surgeon. If you or anyone in your household have experienced Covid symptoms in the past week, please notify your surgeon or the nurse liaison at the phone number below for possible testing. Telephone instructions given to ____PATIENT and asked if any additional questions and then verbalized understanding. Patient advised to call surgeon office or pre surgery nurse liaison [phone] if any additional questions.
--- NOTE | ~2023-10-09 | XR_ITS ---
EXAMINATION: [id number] DATE: 10/09/2023 13:31 INDICATION: Left knee arthroplasty. Postop. TECHNIQUE: 2 views of left knee were obtained. COMPARISON: Left knee radiographs 04/26/2023 FINDINGS: There is a total left knee arthroplasty without patellar resurfacing in near-anatomic align ment. No periprosthetic lucency to suggest loosening or infection. There are osteophytes of the aguilar la. There is a small knee joint effusion. IMPRESSION: 1. Total left knee arthroplasty in near-anatomic alignment. 2. Small left knee joint effusion. Reviewed, dictated and finalized at location E.
--- NOTE | 2023-10-09 08:59 | WPDHPUPDATE1 ---
History and Physical Update Update Date/Time: 10/09/23 08:59 History and Physical has been reviewed, including an updated exam of the patient. There are NO changes in the patient's condition. Risks, benefits, and alternatives have been discussed and questions answered. Patient agrees to proceed with procedure.
--- NOTE | 2023-10-09 10:09 | PM.HPGS ---
History of Present Illness History of Present Illness Consent: Risks, benefits, and alternatives have been discussed and questions answered. Patient agrees to proceed with procedure. Chief complaint: left knee contracture Narrative: 4 1/2 months s/p left total knee arthroplasty. Mild soreness in the back of the knee. He has been working on range of motion without recent progress. He is stiff. Examination Mild limp. No gait aids. Flexion 95?, extension 5?. Wound well-healed. Minimal swelling. No mass or or erythema. No distal edema. Distal neurologic status intact. Diagnostics Films demonstrate an intact left total knee arthroplasty without significant malalignment, wear or osteolysis. The right knee shows severe varus arthritis with grade 4 changes. Mild femoral-tibial subluxation. Moderate osteophytes. Impression Contracture left knee s/p tka. He is no longer making progress with the Jacquie splint and exercise. He has pain in the back of the knee. Proceed with manipulation under anesthesia. Risks, benefits, and alternatives discussed. Review of Systems Review of Systems: All systems reviewed & are unremarkable except as noted in HPI and below PMFSH Past Medical History Medical History Anemia Arthropathies Benign essential HTN Bilateral cataracts Controlled diabetes mellitus with hyperglycemia Dyslipidemia History of blood clots Hyperlipidemia Retinal detachment s/p repair 2022 Surgical History Surgical History History of appendectomy History of umbilical hernia repair Status post total left knee replacement (~04/26/23) Family History Family History Father Acute myocardial infarction, Onset Age: 70 Mother Hypertension Other Diabetes mellitus Social History Social History Social History: Smoking status: Never smoker Second hand tobacco smoke exposure: No Additional smoking assessment comments: DENIES ANY FORM OF TOBACCO USE Alcohol intake: never Substance use: never Substance use type: does not use Do You Feel Safe in your Home?: Yes Lack of Transportation: No Lack of Food: Never True Current Housing: I Have Housing Concerned About Future Housing: No Difficulty Paying Gas/Electric Bills: No Difficulty Paying for Meds: No Currently Unemployed: No Education: High School Diploma/GED Difficulty w/ Childcare or Family Care: No Living arrangements: with family Additional living arrangements comments: Occupation/Education: retired Gender identity (if verbalized by the patient): Male Sexual Orientation (if Verbalized by the Patient): Straight or Heterosexual Spiritual care concerns: No Meds Home Medications and Allergies Home Medications Medication Instructions Recorded Confirmed Type aspirin 81 mg tablet,delayed 81 mg PO HS 06/10/19 09/28/23 History release (Adult Low Dose Aspirin) cholecalciferol (vitamin D3) 1,250 50,000 unit PO WEEKLY #14 caps 02/12/23 09/28/23 Rx mcg (50,000 unit) capsule omeprazole 40 mg capsule,delayed 40 mg PO .daily #30 caps 03/13/23 09/28/23 Rx release tamsulosin 0.4 mg capsule See Rx Instructions .Route 04/02/23 09/28/23 Rx .COMPLEX #90 caps metformin 500 mg tablet See Rx Instructions .Route 07/23/23 09/28/23 Rx .COMPLEX #180 tabs atorvastatin 20 mg tablet See Rx Instructions .Route 07/30/23 09/28/23 Rx .COMPLEX #100 tabs polysaccharide iron complex 150 mg See Rx Instructions .Route 08/06/23 09/28/23 Rx iron capsule (Ferrex) .COMPLEX #30 caps glimepiride 1 mg tablet See Rx Instructions .Route 08/13/23 09/28/23 Rx .COMPLEX #180 tabs amlodipine 5 mg tablet 5 mg PO QAM 09/26/23 09/28/23 History chlorthalidone 25 mg tablet 25 mg PO QAM 09/26/23 09/28/23 His
[2023-10-09 10:43] LABS: Glucose Point of Care 102 mg/dl (65-105)
[2023-10-09 10:50] VITALS: BP 152/62; PULSE 67; TEMP 36.3; O2SAT 100
--- NOTE | 2023-10-09 10:52 | WPDANESEPPF ---
Anes - Initial Pre Proc Eval Procedure: Operation Date: 10/09/23 12:30 Proposed Procedures p Left Total Knee Manipulation - Jorge L Sanford MD Date/Time: 10/09/23 10:52 Surgeon: Jorge L Sanford MD Pre Op Diagnosis: left knee contracture Patient Data Age: 73 Gender: M Height: 1.75 m Weight: 83.55 kg Allergies Allergy/AdvReac Type Severity Reaction Status Date / Time No Known Allergies Allergy Verified 09/28/23 15:29 Home Medications Medication Instructions Recorded Confirmed Type aspirin 81 mg tablet,delayed 81 mg PO HS 06/10/19 09/28/23 History release (Adult Low Dose Aspirin) cholecalciferol (vitamin D3) 1,250 50,000 unit PO WEEKLY #14 caps 02/12/23 09/28/23 Rx mcg (50,000 unit) capsule omeprazole 40 mg capsule,delayed 40 mg PO .daily #30 caps 03/13/23 09/28/23 Rx release tamsulosin 0.4 mg capsule See Rx Instructions .Route 04/02/23 09/28/23 Rx .COMPLEX #90 caps metformin 500 mg tablet See Rx Instructions .Route 07/23/23 09/28/23 Rx .COMPLEX #180 tabs atorvastatin 20 mg tablet See Rx Instructions .Route 07/30/23 09/28/23 Rx .COMPLEX #100 tabs polysaccharide iron complex 150 mg See Rx Instructions .Route 08/06/23 09/28/23 Rx iron capsule (Ferrex) .COMPLEX #30 caps glimepiride 1 mg tablet See Rx Instructions .Route 08/13/23 09/28/23 Rx .COMPLEX #180 tabs amlodipine 5 mg tablet 5 mg PO QAM 09/26/23 09/28/23 History chlorthalidone 25 mg tablet 25 mg PO QAM 09/26/23 09/28/23 History hydralazine 100 mg tablet See Rx Instructions .Route 09/26/23 09/28/23 Rx .COMPLEX #180 tabs irbesartan 300 mg tablet 300 mg PO HS 09/26/23 09/28/23 History levothyroxine 75 mcg tablet 75 mcg PO HS 09/26/23 09/28/23 History metoprolol succinate 50 mg 50 mg PO HS 09/26/23 09/28/23 History tablet,extended release 24 hr dutasteride 0.5 mg capsule See Rx Instructions .Route 09/29/23 Rx .COMPLEX #30 caps Laboratory Tests 10/09/23 10:40 POC Capillary Glucose 102 mg/dl (65-105) Patient hx anesthesia problems: none Family hx anesthesia problems: none Results Review: All pre-operative results and documents have been reviewed as part of the pre-operative evaluation. [facility] Past Medical History Medical History Anemia Arthropathies Benign essential HTN Bilateral cataracts Controlled diabetes mellitus with hyperglycemia Dyslipidemia History of blood clots Hyperlipidemia Retinal detachment s/p repair 2022 Surgical History Surgical History History of appendectomy History of umbilical hernia repair Status post total left knee replacement (~04/26/23) Family History Family History Father Acute myocardial infarction, Onset Age: 70 Mother Hypertension Other Diabetes mellitus Social History Social History Social History: Smoking status: Never smoker Second hand tobacco smoke exposure: No Additional smoking assessment comments: DENIES ANY FORM OF TOBACCO USE Alcohol intake: never Substance use: never Substance use type: does not use Do You Feel Safe in your Home?: Yes Lack of Transportation: No Lack of Food: Never True Current Housing: I Have Housing Concerned About Future Housing: No Difficulty Paying Gas/Electric Bills: No Difficulty Paying for Meds: No Currently Unemployed: No Education: High School Diploma/GED Difficulty w/ Childcare or Family Care: No Living arrangements: with family Additional living arrangements comments: Occupation/Education: retired Gender identity (if verbalized by the patient): Male Sexual Orientation (if Verbalized by the Patient): Straight or Heterosexual Spiritual care concerns: No Anes - Eval Final PreProce
[2023-10-09] MEDS: KETOROLAC 15 MG/ML VIAL (*BKC) IV PUSH (11:22)
[2023-10-09] MEDS: LACTATED RINGERS 1,000 ML 30 ML IV CONT (11:22)
[2023-10-09] MEDS: ACETAMINOPHEN 500 MG TABLET 1000 MG PO (11:23)
[2023-10-09 13:08] VITALS: BP 144/65; PULSE 65; O2SAT 98
[2023-10-09 13:20] LABS: Glucose Point of Care 113 mg/dl (65-105)
[2023-10-09 13:35] VITALS: BP 149/77; PULSE 62
[2023-10-09 14:05] VITALS: BP 164/57; PULSE 62
--- NOTE | 2023-10-10 13:35 | W.PM.PROC2 ---
Procedure Note - Detailed Date of Procedure 10/09/23 Pre-op Diagnosis left knee contracture status post total knee arthroplasty. Post-op Diagnosis Same Procedure Performed Manipulation under anesthesia left knee. Surgeon Jorge L Sanford MD Anesthesia General Indications Patient had a postoperative contracture after total knee arthroplasty. He had a severe contracture preoperatively despite preoperative physical therapy. Postoperative hemarthrosis contributed to his poor progress with physical therapy. Description of Procedure The patient was given a general anesthetic sedation. The knee demonstrated range of motion 5-85 degrees. Manipulation was performed with gentle deep flexion. 115? of flexion was obtained. No other abnormalities were observed upon examination of the knee. Laxity. Within normal limits. Complications No immediate complications Condition Stable Disposition Same day [facility] Billing Surgery - Charge Forward: Surgery Billing
== END 2023-10-09 14:16 | disposition home or self-care (01) ==
PROVIDERS: PCP Family Medicine; Visit Provider Orthopaedic Surgery
PROC: (CPT 27570; principal; 2023-10-09 12:30)
DX: M24.562 Contracture, left knee (principal); Z96.652 Presence of left artificial knee joint; I10 Essential (primary) hypertension; E11.9 Type 2 diabetes mellitus without complications; E78.5 Hyperlipidemia, unspecified; D64.9 Anemia, unspecified; Z79.82 Long term (current) use of aspirin; Z79.84 Long term (current) use of oral hypoglycemic drugs
CPT/HCPCS: 27570; 73560; 82948; A9270; J0330; J0690; J1885; J2704; J7120

== ENCOUNTER 2023-12-14 08:26 | Outpatient (CLI) | payer MEDICARE, SELFPAY ==
--- NOTE | 2023-12-14 08:33 | ECG_ITS ---
Test Date: 2023-12-14 08:54:27 Measurements Intervals Yantis Rate: 60 P: 40 PA: 167 QRS: -5 QRSD: 115 T: 16 QT: 395 QTc: 396 Interpretive Statements SINUS RHYTHM MODERATE INTRAVENTRICULAR CONDUCTION DELAY [110+ ms QRS DURATION] BORDERLINE ECG WARNING: DATA QUALITY MAY AFFECT INTERPRETATION No previous ECG available for comparison Electronically Signed On 12-14-2023 12:54:30 CDT by Tony Contreras M.D.
[2023-12-14 09:36] LABS: Basophils Absolute Auto 0.1 K/mm3 (0.0-0.1); Basophils Percent Auto 0.7 % (0.2-1.2); Eosinophils Absolute Auto 0.3 K/mm3 (0-0.3); Hematocrit 35.9 % (42.0-52.0); Hemoglobin 11.5 g/dL (14.0-18.0); Immature Granulocyte Absolute 0.05 K/mm3 (0.00-0.031); Immature Granulocyte Percent A 0.6 % (0-0.5); Lymphocytes Absolute Auto 1.34 K/mm3 (0.9-3.2); Lymphocytes Percent Auto 14.8 % (18.3-44.2); Mean Corpuscular Hemoglobin 28.8 pg (26-34); Mean Corpuscular Volume 89.8 fl (80-100); Mean Platelet Volume 12.1 fl (7.4-10.4); Monocytes Absolute Auto 0.8 K/mm3 (0.1-0.6); Monocytes Percent Auto 8.4 % (2.6-8.5); Neutrophils Absolute Auto 6.6 K/mm3 (1.3-6.7); Neutrophils Percent Auto 72.5 % (45.5-73.1); Platelet Count Result 232 k/mm3 (150-375); Red Cell Distribution Width 13.1 % (11.5-14.5)
[2023-12-14 09:46] LABS: Urine Cotinine NEGATIVE
[2023-12-14 09:51] LABS: Prothrombin Time 13.8 Seconds (11.1-14.7)
[2023-12-14 09:52] LABS: Partial Thromboplastin Time 29.8 Seconds (22.3-36.8)
[2023-12-14 10:45] LABS: MRSA (PCR) NOT DETECTED (NOT DETECTE)
== END 2023-12-14 08:27 | disposition home or self-care (01) ==
PROVIDERS: Anesthesiology; PCP Family Medicine; Visit Provider Orthopaedic Surgery
DX: M17.11 Unilateral primary osteoarthritis, right knee (principal); N18.32 Chronic kidney disease, stage 3b; Z01.818 Encounter for other preprocedural examination
CPT/HCPCS: 36415; 80307; 85025; 85610; 85730; 86850; 86900; 86901; 87641; 93005

== ENCOUNTER 2023-12-20 01:47 | Day surgery (SDC) | payer MEDICARE, SELFPAY ==
[2023-12-13 10:47] VITALS: BMI 29.0
--- NOTE | 2023-12-13 11:14 | PC.NURSE ---
Report to the Outpatient Waiting Room, entrance under the green pavilion located off [facility], at time ___6:00AM_ on date _12/20/23 . Planned Procedure Time: __7:30AM .? Time changes happen often and if your time is changed the preop area will call you the afternoon before. - You and your visitor will be asked to self-screen and do not enter if you have any COVID symptoms. Please call surgeon if you need to reschedule. - A mask is optional within the hospital at this time. Patients may have clear liquids (water, carbonated beverages, clear teas, apple juice) until 3 hours prior to surgery with a maximum of 20 ounces. - No food from midnight until time of surgery and no smoking. Take only the following medications with a SIP of water on the morning of surgery: ____AMLODIPINE, HYDRALAZINE, METOPROLOL DO NOT STOP ANY OF YOUR OTHER PRESCRIPTION MEDICATIONS PRIOR TO SURGERY EXCEPT THE FOLLOWING Medications to discontinue per physician HOLD ASPIRIN 7 DAYS PRE-OP PER DR FERNANDO- LAST DOSE 12/12/23. HOLD ALL VITAMINS/SUPPLEMENTS 3 DAYS PRE-OP PER ANESTHESIA- LAST DOSE 12/16/23 Please no make-up, nail mongolian, hairspray, perfume, deodorant, or body powder the day of surgery.? No jewelry (including any body piercings) or valuables the day of surgery, leave them at home.? Please take a shower or bath the night before, or the morning of, surgery with an antibacterial soap.? Wear comfortable, loose fitting clothing.? - Jewelry must be removed prior to entering the operating room.? Rings and piercings that are not removed may be cut off. - The hospital will not accept responsibility for valuables.? - Please leave all valuables, including medications, at home the day of surgery. If you are going home after surgery, a licensed route delivery driver must drive you home.? - NO public transportation without another adult if you receive anesthesia. - We recommend that an adult stay with you for 24 hours following discharge. - We also recommend that you do not drive, make important decision, drink alcoholic beverages, or take any drugs that were not prescribed by your health care provider for at least 24 hours after your discharge time. Follow any additional instructions given to you from your surgeon. Telephone instructions given to ____PATIENT and asked if any additional questions and then verbalized understanding. Patient advised to call surgeon office or pre surgery nurse liaison [phone] if any additional questions.
[2023-12-20] VITALS (13 sets, daily range): BP systolic 102–169; BP diastolic 50–70; PULSE 71–82; RESP 12–18; TEMP 36.2–37.5; O2SAT 93–100
--- NOTE | ~2023-12-20 | XR_ITS ---
Right Knee Technique: Portable AP and crosstable lateral views Clinical History: Status post TKR Findings: Patient is status post total knee replacement. Orthopedic hardware alignment appears anatom ic. No hardware complication is evident. Subcutaneous emphysema and swelling is likely postoperative in nature. No acute osseous fracture is seen. Impression: Status post total knee replacement, without evidence of hardware complication. Reviewed, dictated and finalized at location . Impression: Status post total knee replacement, without evidence of hardware complication.
[2023-12-20] MEDS: ACETAMINOPHEN 500 MG TABLET 1000 MG PO (06:25)
[2023-12-20] MEDS: LACTATED RINGERS 1,000 ML 30 ML IV CONT ×2 (06:56→09:34)
[2023-12-20] MEDS: TRANEXAMIC ACID 1,000MG/ISO100 1,000 MG/100 ML BAG 200 MG IVPB (07:03)
[2023-12-20 07:05] LABS: Glucose Point of Care 92 mg/dl (65-105)
--- NOTE | 2023-12-20 07:16 | WPDANESEPPF ---
Anes - Initial Pre Proc Eval Procedure: Operation Date: 12/20/23 07:30 Proposed Procedures p Right Custom Total Knee Arthroplasty - Jorge L Sanford MD Date/Time: 12/20/23 07:16 Surgeon: Jorge L Sanford MD Pre Op Diagnosis: Prim O A Rt Knee Patient Data Age: 73 Gender: M Height: 1.75 m Weight: 89 kg Allergies Allergy/AdvReac Type Severity Reaction Status Date / Time No Known Allergies Allergy Verified 12/20/23 06:11 Home Medications Medication Instructions Recorded Confirmed Type aspirin 81 mg tablet,delayed 81 mg PO HS 06/10/19 12/18/23 History release (Adult Low Dose Aspirin) cholecalciferol (vitamin D3) 1,250 50,000 unit PO WEEKLY #14 caps 02/12/23 12/18/23 Rx mcg (50,000 unit) capsule omeprazole 40 mg capsule,delayed 40 mg PO .daily #30 caps 03/13/23 12/18/23 Rx release polysaccharide iron complex 150 mg See Rx Instructions .Route 08/06/23 12/18/23 Rx iron capsule (Ferrex) .COMPLEX #30 caps chlorthalidone 25 mg tablet 25 mg PO QAM 09/26/23 12/18/23 History levothyroxine 75 mcg tablet 75 mcg PO HS 09/26/23 12/18/23 History tamsulosin 0.4 mg capsule See Rx Instructions .Route 10/21/23 12/18/23 Rx .COMPLEX #90 caps atorvastatin 20 mg tablet See Rx Instructions .Route 11/05/23 12/18/23 Rx .COMPLEX #100 tabs dutasteride 0.5 mg capsule See Rx Instructions .Route 12/02/23 12/18/23 Rx .COMPLEX #30 caps irbesartan 300 mg tablet See Rx Instructions .Route 12/02/23 12/18/23 Rx .COMPLEX #90 tabs amlodipine 5 mg tablet 5 mg PO QAM 12/13/23 12/18/23 History glimepiride 1 mg tablet 1 mg PO BID 12/13/23 12/18/23 History hydralazine 100 mg tablet 100 mg PO BID 12/13/23 12/18/23 History metformin 500 mg tablet 500 mg PO BID 12/13/23 12/18/23 History metoprolol succinate 50 mg 50 mg PO QAM 12/13/23 12/18/23 History tablet,extended release 24 hr Laboratory Tests 12/20/23 07:02 POC Capillary Glucose 92 mg/dl (65-105) Patient hx anesthesia problems: none Family hx anesthesia problems: none Results Review: All pre-operative results and documents have been reviewed as part of the pre-operative evaluation. [facility] Past Medical History Medical History Anemia Arthropathies Benign essential HTN Bilateral cataracts Controlled diabetes mellitus with hyperglycemia Dyslipidemia History of blood clots Hyperlipidemia Retinal detachment s/p repair 2022 Surgical History Surgical History History of appendectomy History of umbilical hernia repair Status post total left knee replacement (~04/26/23) Family History Family History Father Acute myocardial infarction, Onset Age: 70 Mother Hypertension Other Diabetes mellitus Social History Social History Social History: Smoking status: Never smoker Second hand tobacco smoke exposure: No Additional smoking assessment comments: DENIES ANY FORM OF TOBACCO USE Alcohol intake: never Substance use: never Substance use type: does not use Do You Feel Safe in your Home?: Yes Lack of Transportation: No Lack of Food: Never True Current Housing: I Have Housing Concerned About Future Housing: No Difficulty Paying Gas/Electric Bills: No Difficulty Paying for Meds: No Currently Unemployed: No Education: High School Diploma/GED Difficulty w/ Childcare or Family Care: No Living arrangements: with family Additional living arrangements comments: Occupation/Education: retired Gender identity (if verbalized by the patient): Male Sexual Orientation (if Verbalized by the Patient): Straight or Heterosexual Spiritual care concerns: No Anes - Eval Final PreProcedure Day of Procedure 12/20/23 07:16 Patient weigh
--- NOTE | 2023-12-20 07:22 | WPDHPUPDATE1 ---
History and Physical Update Update Date/Time: 12/20/23 07:22 History and Physical has been reviewed, including an updated exam of the patient. There are NO changes in the patient's condition. Risks, benefits, and alternatives have been discussed and questions answered. Patient agrees to proceed with procedure.
[2023-12-20] MEDS: ceFAZolin 2 GM/D5W 50 ML 2 GM/50 ML BAG IVPB ×3 (07:45→23:13)
--- NOTE | 2023-12-20 09:16 | W.PM.PROC2 ---
Procedure Note - Detailed Date of Procedure 12/20/23 Pre-op Diagnosis Degenerative arthritis right knee. Post-op Diagnosis Same Procedure Performed Total knee arthroplasty, right Surgeon Jorge L Sanford MD Head Of History Radha Hardy PA-C Anesthesia General and Regional (Subsartorial block.) Findings Custom total knee optimal fit. Excellent bone quality. No releases required. Description of Procedure Preoperative antibiotics were given. The limb was prepped and draped in the usual sterile fashion with a well-padded tourniquet high on the thigh. The limb was exsanguinated and the tourniquet inflated to 300 mmHg. A longitudinal incision was created just medial to the patella. A trivector approach to the knee was performed. Arthrotomy was taken down through the joint capsule. No significant releases were initially taken. The femur was exposed and the F1 jig was applied. The coring tool was used to remove the cartilage for the F2 jig to sit flush with the bone. The jig was pinned and the distal cut carefully taken. Caliper measurements confirmed appropriate bony resections according to the preoperative templated plan. The F4 cutting jig for the femur was applied, at the standard rotation. The AP and anterior chamfer cuts were taken. The F5 jig was applied and the posterior chamfer cuts were taken. The tibia was prepared using the T1 jig, after removing cartilage for the jig contact points. Proper alignment was checked with the alignment andre. The tibia was cut using the T1u guide. Gap balancing was performed. Gap measurements were taken and the knee was trialed. Excellent alignment and soft tissue balancing was confirmed. The posterior cruciate ligament was recessed along the proximal tibia. The patella was cut for resurfacing. Three lug holes were drilled. Meniscal remnants were removed. The trial components were assembled. Excellent range of motion and proper soft tissue balancing were confirmed throughout the full range of motion. Patellar tracking was excellent. The knee was copiously irrigated periodically throughout the procedure. The real implants were cemented into position. Excess cement was carefully removed. The wound was closed in layers with interrupted #1 Vicryl suture, 2-0 strata fix suture, 0 strata fix suture, 2-0 strata fix suture. Steri-Strips placed on the skin with the knee flexed. Sterile bulky dressing applied. The patient was brought to the recovery room in stable condition. There were no complications. Physician curriculum assistant principal, Radha Hardy PA-C, required for surgery; including patient positioning, draping, tissue retraction, maintaining instrument position, cement removal, wound closure, and dressing placement. Implants Conformis Custom total knee arthroplasty. Cemented. Cruciate retaining. 6B insert. 35 mm round patella. Estimated Blood Loss 50 Tourniquet Time Total Tourniquet Time: 57 Drains No Complications No immediate complications Condition Stable Disposition PACU [facility] Billing Surgery - Charge Forward: Surgery Billing
[2023-12-20 09:44] LABS: Glucose Point of Care 164 mg/dl (65-105)
--- NOTE | 2023-12-20 11:11 | PC.NURSE ---
This patient, Reilly Jarvis Jr., was admitted to [facility] Surg Room 322-02. Patient/family oriented to hospital policies and general routines including ID bracelet, bed and alarms, visiting hours, pain management, procedures, bathroom and other care routines, personal items, smoking policy, room service/diet, and visiting hours. Information on how to activate the Rapid Response Team has been discussed. Patient/Family are encouraged to report perceived risks to care and to ask questions if they do not understand what they are told or what they should do.
[2023-12-20] MEDS: ATORVASTATIN 20 MG TABLET PO (11:24)
[2023-12-20] MEDS: ACETAMINOPHEN 325 MG TABLET 650 MG PO ×3 (11:24→23:13)
[2023-12-20] MEDS: IRBESARTAN 150 MG TABLET 300 MG PO (11:24)
[2023-12-20 11:34] LABS: Basophils Percent Auto 0.2 % (0.2-1.2); Eosinophils Percent Auto 0.2 % (0-4.4); Hematocrit 33.7 % (42.0-52.0); Hemoglobin 10.3 g/dL (14.0-18.0); Immature Granulocyte Absolute 0.09 K/mm3 (0.00-0.031); Immature Granulocyte Percent A 0.6 % (0-0.5); Lymphocytes Absolute Auto 0.67 K/mm3 (0.9-3.2); Lymphocytes Percent Auto 4.5 % (18.3-44.2); Mean Corpuscular HGB Conc 30.6 g/dl (32-36); Mean Corpuscular Hemoglobin 27.9 pg (26-34); Mean Corpuscular Volume 91.3 fl (80-100); Mean Platelet Volume 11.7 fl (7.4-10.4); Monocytes Absolute Auto 0.2 K/mm3 (0.1-0.6); Monocytes Percent Auto 1.5 % (2.6-8.5); Neutrophils Absolute Auto 13.9 K/mm3 (1.3-6.7); Platelet Count Result 201 k/mm3 (150-375); Red Blood Count 3.69 M/mm3 (4.6-6.20); Red Cell Distribution Width 13.1 % (11.5-14.5); White Blood Count 14.9 K/mm3 (4.5-10.0)
[2023-12-20 11:48] LABS: Anion Gap 12 mmol/L (4-12); Blood Urea Nitrogen 33 mg/dL (9-20); Calcium 9.1 mg/dL (8.4-10.2); Carbon Dioxide 22 mmol/L (22-30); Chloride 103 mmol/L (98-107); Estimated CRCL calculation 33 ml/min; Estimated Glomerular Filt Rate 37; Glucose 196 mg/dL (65-110); Potassium 4.8 mmol/L (3.4-5.0); Sodium 137 mmol/L (137-145)
[2023-12-20] MEDS: POLYSACCHARIDE IRON COMPLEX 150 MG CAPSULE PO (12:26)
[2023-12-20] MEDS: ONDANSETRON INJ 4 MG/2 ML VIAL IV PUSH (14:25)
--- NOTE | 2023-12-20 16:01 | PCPTNOTE ---
On 12/20/23, the student, [Miranda Cherry], provided care and completed [facility] documentation on this patient. I have reviewed the student's documentation and agree with the findings.
[2023-12-20] MEDS: SENNA/DOCUSATE SODIUM TABLET 2 TAB PO (16:35)
[2023-12-20] MEDS: metFORMIN HCL 500 MG TABLET PO (16:35)
[2023-12-20] MEDS: traMADol HCL (*CRX) 50 MG TABLET PO (16:35)
[2023-12-20] MEDS: predniSONE 5 MG TABLET PO (16:35)
[2023-12-20] MEDS: hydrALAZINE HCL 50 MG TABLET 100 MG PO (16:35)
[2023-12-20] MEDS: PANTOPRAZOLE 40 MG TABLET PO (16:36)
[2023-12-20] MEDS: ASPIRIN 81 MG ENTERIC TABLET PO (16:36)
[2023-12-20] MEDS: MELOXICAM 7.5 MG TABLET PO (16:36)
[2023-12-20] MEDS: GLIMEPIRIDE 1 MG TABLET PO (16:36)
[2023-12-20] MEDS: DUTASTERIDE 0.5 MG CAPSULE PO (18:17)
[2023-12-20] MEDS: TAMSULOSIN HCL 0.4 MG CAPSULE PO (20:09)
[2023-12-20] MEDS: FAMOTIDINE 20 MG TABLET PO (20:09)
[2023-12-20] MEDS: LEVOTHYROXINE SODIUM 75 MCG TABLET PO (20:09)
[2023-12-21 00:18] VITALS: BP 146/65; PULSE 90; RESP 18; TEMP 36.6; O2SAT 97
[2023-12-21 04:18] VITALS: BP 153/60; PULSE 83; RESP 16; TEMP 37; O2SAT 96
[2023-12-21] MEDS: ACETAMINOPHEN 325 MG TABLET 650 MG PO ×2 (05:11→12:11)
[2023-12-21 07:13] LABS: Basophils Percent Auto 0.2 % (0.2-1.2); Eosinophils Percent Auto 0.1 % (0-4.4); Hematocrit 30.5 % (42.0-52.0); Hemoglobin 9.5 g/dL (14.0-18.0); Immature Granulocyte Percent A 0.5 % (0-0.5); Lymphocytes Absolute Auto 0.73 K/mm3 (0.9-3.2); Mean Corpuscular HGB Conc 31.1 g/dl (32-36); Mean Corpuscular Hemoglobin 28.6 pg (26-34); Mean Corpuscular Volume 91.9 fl (80-100); Mean Platelet Volume 12.3 fl (7.4-10.4); Monocytes Absolute Auto 1.4 K/mm3 (0.1-0.6); Monocytes Percent Auto 7.6 % (2.6-8.5); Neutrophils Absolute Auto 15.9 K/mm3 (1.3-6.7); Neutrophils Percent Auto 87.6 % (45.5-73.1); Platelet Count Result 215 k/mm3 (150-375); Red Blood Count 3.32 M/mm3 (4.6-6.20); Red Cell Distribution Width 13.1 % (11.5-14.5); White Blood Count 18.2 K/mm3 (4.5-10.0)
[2023-12-21 07:22] LABS: Anion Gap 10 mmol/L (4-12); Blood Urea Nitrogen 43 mg/dL (9-20); Calcium 8.8 mg/dL (8.4-10.2); Carbon Dioxide 24 mmol/L (22-30); Chloride 103 mmol/L (98-107); Estimated CRCL calculation 29 ml/min; Estimated Glomerular Filt Rate 31; Glucose 132 mg/dL (65-110); Potassium 4.4 mmol/L (3.4-5.0); Sodium 137 mmol/L (137-145)
[2023-12-21 08:00] VITALS: PULSE 72; RESP 16; O2SAT 96
[2023-12-21 08:18] VITALS: BP 160/55; PULSE 91; RESP 20; TEMP 36.3; O2SAT 97
[2023-12-21] MEDS: hydrALAZINE HCL 50 MG TABLET 100 MG PO (08:22)
[2023-12-21] MEDS: metFORMIN HCL 500 MG TABLET PO (08:22)
[2023-12-21] MEDS: ASPIRIN 81 MG ENTERIC TABLET PO (08:22)
[2023-12-21] MEDS: PANTOPRAZOLE 40 MG TABLET PO (08:22)
[2023-12-21] MEDS: METOPROLOL SUCCINATE EXT REL 50 MG TABCR PO (08:22)
[2023-12-21] MEDS: IRBESARTAN 150 MG TABLET 300 MG PO (08:22)
[2023-12-21] MEDS: MELOXICAM 7.5 MG TABLET PO (08:22)
[2023-12-21] MEDS: FAMOTIDINE 20 MG TABLET PO (08:22)
[2023-12-21] MEDS: CHLORTHALIDONE 25 MG TABLET PO (08:22)
[2023-12-21] MEDS: POLYSACCHARIDE IRON COMPLEX 150 MG CAPSULE PO (08:23)
[2023-12-21] MEDS: polyethylene glycoL 3350 17 GM POWD.PACK PO (08:23)
[2023-12-21] MEDS: SENNA/DOCUSATE SODIUM TABLET 2 TAB PO (08:23)
[2023-12-21] MEDS: ceFAZolin 2 GM/D5W 50 ML 2 GM/50 ML BAG IVPB (08:23)
[2023-12-21] MEDS: GLIMEPIRIDE 1 MG TABLET PO (08:28)
[2023-12-21] MEDS: oxyCODONE/ACETAMINOPHEN (*CRX) 5-325 MG TABLET 1 TABLET PO (08:28)
[2023-12-21] MEDS: ATORVASTATIN 20 MG TABLET PO (08:28)
--- NOTE | 2023-12-21 09:03 | WPDANESPN ---
Anes - Prog Note Post-Op Date/Time: 12/21/23 09:03 Cardiovascular status: normal Respiratory status: normal Airway patency: baseline Mental status: baseline Post-Op hydration status: normal Vital Signs: Last Vital Signs Temp 37.0 C 12/21/23 04:18 Pulse 83 12/21/23 04:18 Resp 16 12/21/23 04:18 BP 153/60 H 12/21/23 04:18 Pulse Ox 96 12/21/23 04:18 O2 Del Method Room Air 12/20/23 20:00 O2 Flow Rate 8 12/20/23 09:45 Pain Score (VAS): 0 I/O: Intake & Output 12/20/23 12/21/23 12/21/23 23:59 07:59 15:59 Intake Total 620 150 240 Balance 620 150 240 Laboratory Tests 12/21/23 06:30 12/21/23 06:30 12/20/23 12/20/23 12/20/23 09:41 11:24 11:25 WBC 14.9 H RBC 3.69 L Hgb 10.3 L Hct 33.7 L MCV 91.3 MCH 27.9 MCHC 30.6 L RDW 13.1 Plt Count 201 MPV 11.7 H Immature Gran % (Auto) 0.6 H Neut % (Auto) 93.0 H Lymph % (Auto) 4.5 L Quay % (Auto) 1.5 L Eos % (Auto) 0.2 Baso % (Auto) 0.2 Lymph # (Auto) 0.67 L Quay # (Auto) 0.2 Eos # (Auto) 0.0 Baso # (Auto) 0.0 Abs Immat Gran (auto) 0.09 H Absolute Neuts (auto) 13.9 H Absolute Nucleated RBC 0.000 Nucleated RBC % 0.0 Sodium 137 Potassium 4.8 Chloride 103 Carbon Dioxide 22 Anion Gap 12 BUN 33 H Creatinine 1.80 H Estim Creat Clear Calc 33 Estimated GFR 37 L Glucose 196 H POC Capillary Glucose 164 H Calcium 9.1 12/21/23 06:30 WBC 18.2 H RBC 3.32 L Hgb 9.5 L Hct 30.5 L MCV 91.9 MCH 28.6 MCHC 31.1 L RDW 13.1 Plt Count 215 MPV 12.3 H Immature Gran % (Auto) 0.5 Neut % (Auto) 87.6 H Lymph % (Auto) 4.0 L Quay % (Auto) 7.6 Eos % (Auto) 0.1 Baso % (Auto) 0.2 Lymph # (Auto) 0.73 L Quay # (Auto) 1.4 H Eos # (Auto) 0.0 Baso # (Auto) 0.0 Abs Immat Gran (auto) 0.10 H Absolute Neuts (auto) 15.9 H Absolute Nucleated RBC 0.000 Nucleated RBC % 0.0 Sodium 137 Potassium 4.4 Chloride 103 Carbon Dioxide 24 Anion Gap 10 BUN 43 H D Creatinine 2.10 H Estim Creat Clear Calc 29 Estimated GFR 31 L Glucose 132 H POC Capillary Glucose Calcium 8.8 Post-procedural complaints: none Patient Feedback: Patient satisfied with anesthetic care.
--- NOTE | 2023-12-21 10:02 | PM.PNORT ---
Progress Note: A&P Assessment and Plan (1) Status post total right knee replacement: Code(s): Z96.651 - Presence of right artificial knee joint Status: Acute Assessment and Plan: POD #1 Custom right total knee arthroplasty. Patient has no complaints today. He states he is overall feeling very well. Patient does have history of kidney disease and sees Dr. Forman. Patients postoperative labs show a WBC of 18.2. Likely increased due to postoperative reaction and prednisone. No signs of infection. His kidney function has worsened postoperatively. Creatinine 2.1 this morning. 1.72 pre-operative. GFR 31. Pre-operatively it was 41. I recommend he increase water intake and will avoid NSAIDs. Will stop meloxicam. I spoke with Dr. Sanford who would like a hospitalist consult. Discharge pending hospitalist consult. Subjective Subjective Date/Time Seen: 12/21/23 10:02 Interval history: Patient resting comfortably at the time of my visit. No complaints. States knee is not hurting much. He denies SOB, CP, ABD pain, N/V/D, cough, and Urinary symptoms. No signs of infection. Review of Systems Review of Systems: All systems reviewed & are unremarkable except as noted in HPI and below Exam Narrative: 73-year-old overweight male. Resting comfortably in chair. Alert and oriented x3. No acute distress. Wearing compression socks bilaterally. Dressing intact with no drainage. Moderate swelling. Slight ecchymosis. No erythema. No hematoma. No warmth. Range of motion limited due to pain. Calf nontender. Fires quad. Neurologic status intact. No varicosities. Distal pulses palpable. Light touch sensation intact. Good capillary refill. Objective Data Vital Signs Vital Signs: Vital Signs - 24 hr 12/20/23 10:15 12/20/23 10:28 12/20/23 10:33 Temperature 97.1 F L Pulse Rate 80 77 77 Respiratory Rate 14 12 13 Blood Pressure 119/57 L 125/57 L 126/59 L Pulse Oximetry 95 95 93 Oxygen Delivery Room Air Room Air 12/20/23 10:48 12/20/23 11:14 12/20/23 13:19 Temperature 97.1 F L 97.5 F L Pulse Rate 72 74 Respiratory Rate 13 13 Blood Pressure 133/60 138/68 Pulse Oximetry 94 94 Oxygen Delivery Room Air 12/20/23 14:11 12/20/23 11:00 12/20/23 16:17 Temperature 97.8 F Pulse Rate 71 Respiratory Rate 14 Blood Pressure 131/61 Pulse Oximetry 98 Oxygen Delivery Room Air Room Air 12/20/23 20:18 12/20/23 20:00 12/21/23 00:18 Temperature 97.6 F 97.9 F Pulse Rate 75 75 90 Respiratory Rate 18 18 18 Blood Pressure 134/53 L 146/65 H Pulse Oximetry 96 96 97 Oxygen Delivery Room Air 12/21/23 04:18 12/21/23 08:18 Temperature 98.6 F 97.4 F L Pulse Rate 83 91 Respiratory Rate 16 20 Blood Pressure 153/60 H 160/55 H Pulse Oximetry 96 97 Oxygen Delivery Intake/Output Intake/Output: Intake & Output 12/18/23 12/19/23 12/20/23 12/21/23 23:59 23:59 23:59 23:59 Intake Total 960 390 Balance 960 390 Meds/Results Medications: Active Medications Generic Name Dose Route Start Last Admin Trade Name Freq PRN Reason Stop Dose Admin Acetaminophen 650 mg 12/20/23 12:00 12/21/23 05:11 Acetaminophen 325 Mg Tablet PO 650 mg Q6HR CALVIN Administration Amlodipine Besylate 5 mg 12/21/23 18:00 Amlodipine Besylate 5 Mg Tablet PO EVENING CALVIN Aspirin 81 mg 12/20/23 17:00 12/21/23 08:22 Aspirin 81 Mg Enteric Tablet PO 81 mg BID CALVIN Administration Atorvastatin Calcium 20 mg 12/20/23 11:00 12/21/23 08:28 Atorvastatin 20 Mg Tablet PO 20 mg DAILY CALVIN Administration Chlorthalidone 25 mg 12/21/23 09:00 12/21/23 08:22 Chlorthalidone 25 Mg Tablet PO 25 mg QAM CALVIN Administration Cyclobenzaprine HCl 10 mg 12/20/23 10:33 Cyclobenzaprine Hcl 10 Mg Tablet PO Q8H PRN Spasms Dextrose 12.5 gm 12/20/23 10:33 Dextrose 50% 25 Gm/50 Ml Syringe IV PUSH PRN PRN Hypoglycemia Protocol Diphenhydramine HCl 25 mg
[2023-12-21 10:05] VITALS: BMI 28.8
--- NOTE | 2023-12-21 11:47 | PM.DS ---
DS: Admitting Diagnosis Discharge Date 12/21/23 or 12/22/23 Admitting Diagnosis knee arthritis DS: Discharge Diagnosis Discharge Diagnosis (1) Status post total right knee replacement: Code(s): Z96.651 - Presence of right artificial knee joint Status: Acute Assessment and Plan: Postop day 1: Right total knee arthroplasty. Patient tolerated procedure well. No complications. Pain manageable with pain medication. No numbness or tingling. Patient does have history of kidney disease and sees Dr. Forman. Patients postoperative labs show a WBC of 18.2. Likely increased due to postoperative reaction and prednisone. No signs of infection. His kidney function has worsened postoperatively. Creatinine 2.1 this morning. 1.72 pre-operative. GFR 31. Pre-operatively it was 41. I recommend he increase water intake and will avoid NSAIDs. Will stop meloxicam. We had a lengthy discussion regarding postoperative wound care, limitations, expectations, and exercises. Patient shows good understanding. He has had initial physical therapy and is tolerating it well. D/C pending hospitalist visit due to kidney function. DVT prophylaxis: 81 mg baby aspirin b.i.d. for 14 days. Pain medication: Percocet. Will avoid other NSAIDs Patient has followup appointment with Dr. Sanford in 3 weeks. DS: Summary Hospital Course Reason for hospitalization: Total knee arthroplasty Hospital Course: Patient tolerated procedure well. Has had initial PT/OT. Status at Discharge Functional status at discharge: uses cane/walker Overall status at discharge: patient is progressing back to baseline Time Spent with Patient Time attestation: Total time spent providing and/or coordinating discharge services: Exam Narrative: 73-year-old overweight male. Resting comfortably in bed. Alert and oriented x3. No acute distress. Wearing compression socks bilaterally. Dressing intact without drainage on Mepilex. Mild swelling. No ecchymosis. No erythema. No hematoma. Range of motion limited due to pain. ROM 0-90. Calf nontender. Quad fires. Neurologic status intact. No varicosities. Distal pulses palpable. DS: Data Data Completed and Pending Labs on day of discharge: Labs from last 24 hours 12/21/23 12/20/23 12/20/23 06:30 11:25 11:24 WBC 18.2 H 14.9 H RBC 3.32 L 3.69 L Hgb 9.5 L 10.3 L Hct 30.5 L 33.7 L MCV 91.9 91.3 MCH 28.6 27.9 MCHC 31.1 L 30.6 L RDW 13.1 13.1 Plt Count 215 201 MPV 12.3 H 11.7 H Immature Gran % (Auto) 0.5 0.6 H Neut % (Auto) 87.6 H 93.0 H Lymph % (Auto) 4.0 L 4.5 L Travis % (Auto) 7.6 1.5 L Eos % (Auto) 0.1 0.2 Baso % (Auto) 0.2 0.2 Lymph # (Auto) 0.73 L 0.67 L Travis # (Auto) 1.4 H 0.2 Eos # (Auto) 0.0 0.0 Baso # (Auto) 0.0 0.0 Abs Immat Gran (auto) 0.10 H 0.09 H Absolute Neuts (auto) 15.9 H 13.9 H Absolute Nucleated RBC 0.000 0.000 Nucleated RBC % 0.0 0.0 Sodium 137 137 Potassium 4.4 4.8 Chloride 103 103 Carbon Dioxide 24 22 Anion Gap 10 12 BUN 43 H D 33 H Creatinine 2.10 H 1.80 H Estim Creat Clear Calc 29 33 Estimated GFR 31 L 37 L Glucose 132 H 196 H Calcium 8.8 9.1 Discharge Plan Discharge Patient Disposition: Home, Self-Care Discharge Instructions: See green instruction sheets Stand Alone Forms: General Discharge Instructions Follow-up/Referrals: Radha Hardy PA [Physician [employer]] - Discharge Medications: New aspirin 81 mg tablet,delayed release (DR/EC) 81 mg PO BID 14 Days Qty: 28 0RF oxycodone-acetaminophen 5-325 mg tablet 1 - 2 tablet PO Q4-6H MDD 8 PRN (Reason: pain) Qty: 30 0RF prednisone 5 mg tablet 5 mg PO DAILY 21 Days Qty: 21 0RF Continued aspirin [Adult Low Dose Aspirin] 81 mg tablet,delayed release (DR/EC) 81 mg PO HS chlorthalidone 25 mg tablet 25 mg PO QAM Rx Instructions: Take 1 tablet by mouth o
[2023-12-21 12:18] VITALS: BP 130/56; PULSE 72; RESP 16; TEMP 36.4; O2SAT 96
[2023-12-21 12:18] LABS: Glucose Point of Care 130 mg/dl (65-105)
--- NOTE | 2023-12-21 13:05 | WPDCN ---
Assessment and Plan Assessment and plan (1) Degenerative joint disease of right knee: Qualifiers: Osteoarthritis type: primary Qualified Code(s): M17.11 - Unilateral primary osteoarthritis, right knee Code(s): M17.11 - Unilateral primary osteoarthritis, right knee Status: Acute Assessment and Plan: Postoperative day 1 status post right total knee arthroplasty. Wound care, pain DVT prophylaxis deferred to primary service. (2) Stage 3b chronic kidney disease: Code(s): N18.32 - Chronic kidney disease, stage 3b Status: Chronic Assessment and Plan: Creatinine over the past 1 year has ranged from 1.59 to 2.00 with a GFR in the high 30s to low 40s. Creatinine yesterday was 1.80 and today it is 2.10. He had some low blood pressures during surgery requiring push dose pressors but he did not have longstanding hypotension. Blood pressures since surgery have been in the 130s to 160s systolic. According to the nurse he has had good urine output and is not retaining urine. He is tolerating his diet and has had good oral intake. His hemoglobin has dropped a little bit postoperatively but not significantly. Total CK is slightly elevated at 359 which is likely due to recent surgery. Given the variation in his renal function over the past 1 year, I suspect it will improve on its own. Meloxicam and chlorthalidone have been placed on hold. Call placed to his [employer], Dr. Forman, and he agrees with holding the aforementioned drugs. Patient is okay for discharge home this weekend. He requests labs to be done this Sunday and will follow up. (3) Hypertension: Code(s): I10 - Essential (primary) hypertension Status: Acute Assessment and Plan: Blood pressures were reviewed and they have been running in the 130s to 160s systolic. Antihypertensives will be reviewed and resumed as appropriate. (4) Hypothyroidism: Code(s): E03.9 - Hypothyroidism, unspecified Status: Acute Assessment and Plan: Continue levothyroxine; recent TSH was within normal limits. (5) Benign prostatic hyperplasia: Code(s): N40.0 - Benign prostatic hyperplasia without lower urinary tract symptoms Status: Acute Assessment and Plan: No issues with urinary retention postoperatively. Continue dutasteride and tamsulosin. (6) Type 2 diabetes mellitus: Code(s): E11.9 - Type 2 diabetes mellitus without complications Status: Acute Assessment and Plan: Glucose is well controlled and recent hemoglobin A1c was less than 6%. Initiate sliding scale insulin, Accu-Cheks, and hypoglycemic protocol. Plan Thank you for allowing us to participate in this patient's care. Please do not hesitate to contact us with any questions. HPI Data of Consult Date/Time: 12/21/23 15:30 Requesting Physician: Jorge L Sanford MD Consult Narrative Reason for consult: Increasing creatinine postoperatively. Narrative: This is a 73-year-old male with osteoarthritis, chronic kidney disease stage IIIB, hypertension, hyperlipidemia, type 2 diabetes mellitus, benign prostatic hyperplasia, gastroesophageal reflux disease, hypothyroidism, and history of deep venous thrombosis who is postoperative day 1 status post right total knee arthroplasty whom the hospitalist service has been consulted for an increase in his creatinine level from baseline. Surgery was performed under general anesthesia with no immediate complications documented an estimated blood loss of 50 mL. Anesthesia note was reviewed and he was given several push dose vasopressors for transient hypotension which was not longstanding. Postoperatively his blood pressures have been stable and he has done quite well. This morning his creatinine was 2.10 which is up from 1.80 on yesterday's labs and is in this setting that we have been consulted (his baseline creatinine appears to range between 1.60 and 1.90 with a baseline GFR in t
[2023-12-21 14:46] LABS: Basophils Percent Auto 0.3 % (0.2-1.2); Eosinophils Absolute Auto 0.1 K/mm3 (0-0.3); Eosinophils Percent Auto 0.4 % (0-4.4); Hematocrit 30.5 % (42.0-52.0); Hemoglobin 9.5 g/dL (14.0-18.0); Immature Granulocyte Absolute 0.08 K/mm3 (0.00-0.031); Immature Granulocyte Percent A 0.5 % (0-0.5); Lymphocytes Absolute Auto 0.77 K/mm3 (0.9-3.2); Lymphocytes Percent Auto 5.1 % (18.3-44.2); Mean Corpuscular HGB Conc 31.1 g/dl (32-36); Mean Corpuscular Hemoglobin 28.5 pg (26-34); Mean Corpuscular Volume 91.6 fl (80-100); Mean Platelet Volume 11.5 fl (7.4-10.4); Monocytes Absolute Auto 1.3 K/mm3 (0.1-0.6); Monocytes Percent Auto 8.5 % (2.6-8.5); Neutrophils Percent Auto 85.2 % (45.5-73.1); Platelet Count Result 210 k/mm3 (150-375); Red Blood Count 3.33 M/mm3 (4.6-6.20); Red Cell Distribution Width 13.2 % (11.5-14.5); White Blood Count 15.2 K/mm3 (4.5-10.0)
[2023-12-21 15:03] LABS: Anion Gap 11 mmol/L (4-12); Blood Urea Nitrogen 42 mg/dL (9-20); CRP 0.8 mg/dL (<1.0); Calcium 8.8 mg/dL (8.4-10.2); Carbon Dioxide 25 mmol/L (22-30); Chloride 101 mmol/L (98-107); Creatine Kinase 359 U/L (55-170); Estimated CRCL calculation 29 ml/min; Estimated Glomerular Filt Rate 31; Glucose 132 mg/dL (65-110); Potassium 4.3 mmol/L (3.4-5.0); Sodium 137 mmol/L (137-145)
[2023-12-21 15:40] LABS: Procalcitonin 0.1 ng/mL
[2023-12-21 15:44] LABS: Erythrocyte Sedimentation Rate 104 mm/hr (0-20)
== END 2023-12-21 16:37 | disposition home or self-care (01) ==
LOC: ANHSURGERY 09:42 → ANH3MEDSUR 10:35
PROVIDERS: Physician Assistant; Physician Assistant Surgical; PCP Family Medicine; Visit Provider Orthopaedic Surgery
PROC: (CPT 27447; principal; 2023-12-20 07:30)
DX: M17.11 Unilateral primary osteoarthritis, right knee (principal); I10 Essential (primary) hypertension; D64.9 Anemia, unspecified; E78.5 Hyperlipidemia, unspecified; E11.9 Type 2 diabetes mellitus without complications; Z79.82 Long term (current) use of aspirin; Z79.84 Long term (current) use of oral hypoglycemic drugs
CPT/HCPCS: 27447; 36415; 73560; 80048; 82550; 82948; 84145; 85025; 85652; 86140; 97110; 97116; 97161; 97165; 97530; 97535; A9270; C1713; C1776; J0171; J0690; J1100; J1885; J2250; J2270; J2371; J2405; J2704; J2795; J3010; J7120; J7512

== ENCOUNTER 2024-02-08 09:09 | Outpatient (CLI) | payer MEDICARE, SELFPAY ==
--- NOTE | ~2024-02-08 | XR_ITS ---
XR knee RT 3V 02/08/2024 09:26 Indication: Six-week postop knee replacement Procedure: 3 views right knee Comparison: 09/05/2023 Findings: There is a right total knee arthroplasty with patellar resurfacing. Prosthesis well seated. No fracture or evidence of loosening. Small joint effusion. No foreign bodies. Impression: 1: Anatomic alignment of right knee arthroplasty without evidence for acute underlying osseous abnorm ality. Reviewed, dictated and finalized at location B. Impression: 1: Anatomic alignment of right knee arthroplasty without evidence for acute und erlying osseous abnormality.
== END 2024-02-08 09:10 | disposition home or self-care (01) ==
PROVIDERS: PCP Family Medicine; Visit Provider Orthopaedic Surgery
DX: Z47.89 Encounter for other orthopedic aftercare (principal)
CPT/HCPCS: 73562

== ENCOUNTER 2024-03-31 10:22 | Outpatient (CLI) | payer MEDICARE, SELFPAY ==
[2024-03-31 11:51] LABS: Creatinine Urine 22.6 mg/dL; Total Protein Urine Random 15 mg/dL; Ur Ttl Prot Creatinine Ratio 0.66 mg/mg (0-0.20)
[2024-03-31 12:15] LABS: Albumin Level 4.6 g/dL (3.5-5.1); Anion Gap 12 mmol/L (4-12); Blood Urea Nitrogen 28 mg/dL (9-20); Calcium 9.6 mg/dL (8.4-10.2); Carbon Dioxide 21 mmol/L (22-30); Chloride 106 mmol/L (98-107); Estimated Glomerular Filt Rate 37; Glucose 100 mg/dL (65-110); Phosphorus 4.1 mg/dL (2.5-4.5); Potassium 4.6 mmol/L (3.4-5.0); Sodium 139 mmol/L (137-145)
== END 2024-03-31 10:23 | disposition home or self-care (01) ==
PROVIDERS: PCP Family Medicine; Visit Provider Internal Medicine Nephrology
DX: I12.9 Hypertensive chronic kidney disease with stage 1 through stage 4 chronic kidney disease, or unspecified chronic kidney disease (principal); E11.22 Type 2 diabetes mellitus with diabetic chronic kidney disease; N18.32 Chronic kidney disease, stage 3b
CPT/HCPCS: 36415; 80069; 82570; 84156

== ENCOUNTER 2024-05-29 00:18 | Day surgery (SDC) | payer MEDICARE, SELFPAY ==
[2024-05-14 15:06] VITALS: BMI 28.6
--- OUTSIDE RECORDS SUMMARY | 2024-05-29 00:22 | XMS_ITS | Clinical Summary ---
Author Organization [facility] [place] [facility] [facility] [address] Address [address] [place] [address] Care Team Providers Care Parts Counter Representative Name Role Phone Shawnee Morris MD Primary Care Provider Allergies No known active allergies Surgical History Surgery Date Site/Laterality Comments OTHER SURGICAL HISTORY 2006 vena cuna filter implant Family History Medical History Relation Name Comments Coronary artery disease Other Fami ly history of Coronary artery disease; Diabetes Other Family history of Diabetes mellitus; Hypertension Other Family history of Hypertension; Relation Name Status Comments Other Social History Tobacco Use Types Packs/Day Years Used Date Smoking Tobacco: Never Assessed Alcohol Use Standard Drinks/Week Comments No 0 (1 standard drink = 0.6 oz pur e alcohol) Sex and Gender Information Value Date Recorded Sex Assigned at Not on file 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
--- OUTSIDE RECORDS SUMMARY | 2024-05-29 00:22 | XMS_ITS | Continuity of Care Document ---
Author Organization [facility] [place] Address [address] [place] [address] Phone Care Team Providers Care Paper Cap Machine Operator Name Role Phone Gagnon OD, Harshal Unavailable Unavailable Procedures Procedure Date CL Replacement - Vistakon Disp W/BW Soft [facility] CL Replacement - Vistakon Disp W/BW Soft [facility] Eye Exam & Treatment Refraction Advance Directives Directive Yes / No Effective Date File Name No Information Encounters Encounter Description Practice Location Reason(s) For Visit Diagnoses Date Provider Providers Copied on Encounter [facility], [address] [place] [address] [address], [place], [place], [id number], tel:[phone] [facility] No Information 8-200 7 Gagnon OD Harshal. [address], [place], [place], [facility], . tel:[phone] [facility], [address] [place] [address] [address], [place], [place], [id number], [place] tel:[phone] [facility] No Information 1-200 7 Gagnon OD Harshal. [address], [place], [place], [facility], . tel:[phone] [facility], [address] [place] [address] [address], [place], [place], [id number], tel:[phone] [facility] No Information 9-200 7 Gagnon OD Harshal. [address], [place], [address], [place]. tel:[phone] Family History Family Member Type Diagnosis Age At Onset No Information Payers Payer name Insurance type Covered alliance party ID Authoriza tion(s) No Information Social History Type Description Quantity Date Captured Comments Sex Male Smoking Status No Information Chief Complaint And Reason For Visit No Information Reason For Referral Reason For Referral No Information History Of Present Illness Encounter Date Complaint History Of Prese nt Illness No Information Functional Status Date Functional Assessmen t No Information Instructions Date Instruction Additional Infor mation No Information Assessments Type Assessment Date No Information Patient Care Teams Name Effective Dates (start - stop) Status Members No Information
--- OUTSIDE RECORDS SUMMARY | 2024-05-29 00:22 | XMS_ITS | Clinical Summary ---
Author Organization [facility] Address [address], [facility] [address] [place] [address] Phone Care Team Providers Care Teaching Aide Name Role Phone Harshal Szymanski DO Unavailable [phone] Allergies No known active allergies Medications aspirin EC 81 MG Tablet Delayed Response Take 81 mg by mouth daily. Active metFORMIN (GLUCOPHAGE) 1000 MG Tablet Take 1 Tab by mouth 2 times daily (with meals). 180 Tab 3 7 Active clobetasol (TEMOVATE) 0.05 % Ointment Apply to both hands 60 g 8 Active Additional Information Patient not taking.Reported on 10/03/2017 losartan potassium-hydroc hlorothiazide (HYZAAR) 100-25 MG Tablet Take 1 Tab by mouth daily. 90 Tab 8 Active metFORMIN (GLUCOPHAGE) 1000 MG Tablet TAKE ONE TABLET BY MOUTH TWICE A DAY WITH MEALS 180 Tab 3 8 Active atorvastatin (LIPITOR) 20 MG Tablet TAKE ONE TABLET BY MOUTH ONCE DAILY 90 Tab 1 9 Active amLODIPine (NORVASC) 10 MG TabletIndication s:Essential hypertension TAKE ONE TABLET BY MOUTH ONCE DAILY 90 Tab 1 9 Active Active Problems Problem Noted Date Diagnosed Date Presence of IVC filter 09/05/2016 History of DVT of lower extremity 09/05/2016 Dyslipidemia 09/05/2016 HTN (hypertension) 05/24/2016 Type 2 diabetes mellitus wit hout complication, without long-term current use of insulin 05/24/2016 Resolved Problems Problem Noted Date Diagnosed Date Resolved Date DM (diabetes mellitus screen) 05/24/2016 05/24/2016 Immunizations Immunization Administration Dates Next Due Influenza Vaccine, Quadrivalent, PF 05/08/2017 PUR FLU HIGH DOSE (FLUZONE) 05/24/2016 Pneumococcal Vaccine - 13 Valent 11/07/2016 Pneumococcal Vaccine Adult - 23 Valent 8 TDAP Vaccine 03/11/2012 Family History Medical History Relation Name Comments Cancer Father Congestive Heart Failure Father Relation Name Status Comments Father Mother Alive Social History Tobacco Use Types Packs/Day Years Used Date Smoking Tobacco: Never Smokeless Tobacco: Never Tobacco Cessation:Counseling Given: Yes Alcohol Use Standard Drinks/Week Comments Yes 0 (1 standard drink = 0.6 oz pure alcohol) 1 drink a month if that. rarely Sex and Gender Information Value Date Recorded Sex Assigned at Not on file Legal Sex Male 9:30 AM CDT Gender Identity Not on file Sexual Orientation Not on file Last Filed Vital Signs Vital Sign Reading Time Taken Comments Blood Pressure 158/72 11/12/2017 8:31 AM CDT Pulse 71 11/12/2017 8:31 AM CDT Temperature 36.6 C (97.9 F) 11/12/2017 8:31 AM CDT Respiratory Rate 19 11/12/2017 8:31 AM CDT Oxygen Saturation 97% 11/12/2017 8:31 AM CDT Inhaled Oxygen Concentration - - Weight 87.5 kg (193 lb) 11/12/2017 8:31 AM CDT Height 175.3 cm (5' 9 ) 11/12/2017 8:31 AM CDT Body Mass Index 28.5 11/12/2017 8:31 AM CDT Plan of Treatment Health Maintenance Due Date Last Done Comments Diabetes: Eye Exam 1950 Diabetes: Foot Exam 1950 Hepatitis C Virus (HCV) Screening 1950 Cologuard 2000 Immunochemical Fecal Occult Blood 2000 Zoster Immunization (1 of 2) 2000 Diabetes: Hemoglobin A1c 05/08/2018 018, 05/01/2017, 10/31/2016, Additional history exists Diabetes: Nephropathy Screening 11/05/2018 11/05/2017, 11/05/2017, 05/01/2017, Additional history exists Td Immunization Every 10 Years (Adults With 1 Tdap) 03/11/2022 03/11/2012 Influenza Immunization (#1) 2023 05/08/2017, 0 05/24/2016 SARS-COV-2 Immunization ( season) 2023 Respiratory Syncytial Virus (RSV) Immunization (Adult) (1 - 1-dose 75+ series) 2025 Colonoscopy 01/11/2027 01/11/2017 Colorectal Cancer Screening 01/11/2027 01/11/2017 PSA Discussion Discontinued 07/17/2016 Pneumococcal Immunization (50+ years) Completed 11/12/2017, 11/07/2016 Pneumococcal Immunization Combined Discontinued 11/12/2017, 11/07/2016 Hepatitis B Immunization Aged Out No longer eligible based on patient's age to complete this topic Meningococcal Immunization (ACWY) Aged Out No longer eligible based on patient's age to complete this topic Rotavirus Immunization Aged Out No lo nger eligible based on patient's age to complete this topic Procedures Procedure Name Priority Date/Time Associated Diagnosis Comments CMP (COMPREHENSIVE METABOLIC PANEL) Routine 11/05/2017 8:47 AM CDT Type 2 diabetes mellitus without complication, without long-term current use of insulin (HCC) HEMOGLOBIN A1C W/ ESTIMATED GLUCOSE Routine 11/05/2017 8:47 AM CDT Type 2 diabetes mellitus without complication, without long-term current use of insulin (HCC) HM COLONOSCOPY Routine 01/11/2017 PSA SCREEN Routine 07/17/2016 9:35 AM CDT Screening for prostate cancer from Last 3 Months or Most Recently Relevant to Health Maintenance Results * (ABNORMAL) HEMOGLOBIN A1C W/ ESTIMATED GLUCOSE (11/05/2017 8:47 AM CDT) HGB-A1C 8.0(H) 4.0 - 6.0 % 11/05/2017 12:56 PM CDT [facility] Est Average Glucose 182.9 mg/dL 11/05/2017 12:56 PM CDT [facility] Blood specimen (specimen) Venipuncture / Unknown 11/05/2017 8:47 AM CDT 11/05/2017 8:48 AM CDT Narrative [facility] - 11/05/2017 12:56 PM CDT HEMOGLOBIN A1C: DIABETIC PATIENTS: WELL-CONTROLLED: 6.2 - 7.0 INTERMEDIATE WELL-CONTROLLED: 7.0 - 9.0 POORLY-CONTROLLED: >9.0 us Brooklynn Moreno MD CHEMISTRY ORDERABLES Final Result [facility] [address] [place] [address] * (ABNORMAL) CMP (COMPREHENSIVE METABOLIC PANEL) (11/05/2017 8:47 AM CDT) SODIUM 140 136 - 144 mmol/L 11/05/2017 1:25 PM CDT [facility] POTASSIUM 4.3 3.5 - 5.1 mmol/L 11/05/2017 1:25 PM CDT [facility] CHLORIDE 103 100 - 110 mmol/L 11/05/2017 1:25 PM CDT [facility] CO2, VENOUS 26 22 - 32 mmol/L 11/05/2017 1:25 PM CDT [facility] ANION GAP 15.3 8.0 - 20.0 mmol/L 11/05/2017 1:25 PM CDT [facility] GLUCOSE 165(H) 70 - 99 mg/dL 11/05/2017 1:25 PM CDT [facility] BUN 14 8 - 23 mg/dL 11/05/2017 1:25 PM CDT [facility] CREATININE, BLOOD 0.85 0.80 - 1.30 mg/dL 11/05/2017 1:25 PM CDT [facility] BUN/CREATININE RATIO 16 12 - 20 ratio 11/05/2017 1:25 PM CDT [facility] TOTAL PROTEIN 8.0 6.0 - 8.3 g/dL 11/05/2017 1:25 PM CDT [facility] ALBUMIN 4.5 3.5 - 5.2 g/dL 11/05/2017 1:25 PM CDT [facility] Comment: The colormetric methods used for the determination of Albumin may lead to falsely elevated test results in patients suffering from renal failure or insufficiency due to interference with other proteins. A/G RATIO 1.3 1.0 - 2.0 11/05/2017 1:25 PM CDT [facility] CALCIUM 9.8 8.9 - 10.3 mg/dL 11/05/2017 1:25 PM CDT [facility] T BILI 0.6 <=1.2 mg/dL 11/05/2017 1:25 PM CDT [facility] SGOT (AST) 34 <=40 U/L 11/05/2017 1:25 PM CDT [facility] SGPT (ALT) 38 <=41 U/L 11/05/2017 1:25 PM CDT [facility] ALKALINE PHOSPHATASE 89 40 - 130 U/L 11/05/2017 1:25 PM CDT [facility] GFR, EST. NONAFRICAN >60 >=60 11/05/2017 1:25 PM CDT [facility] GFR, EST. >60 >=60 018 1:25 PM CDT [facility] Comment: Creatinine Clearance is the preferred criteria for selecting drug dose adjustments in renally impaired patients. The GFR is provided as additional pertinent clinical information. GFR is reported in mL/min/1.73 sq m. Blood specimen (specimen) Venipuncture / Unknown 11/05/2017 8:47 AM CDT 11/05/2017 8:48 AM CDT us Brooklynn Moreno MD CHEMISTRY ORDERABLES Final Result [facility] [address] [place] [address] * HM COLONOSCOPY (01/11/2017) us Brooklynn Moreno MD PROCEDURE/MINOR SURGICAL OR DERABLES Final Result * PSA SCREEN (07/17/2016 9:35 AM CDT) PSA SCREEN, TOTAL 2.55 0.00 - 4.00 ng/mL 07/17/2016 12:01 PM CDT [facility] Blood specimen (specimen) Venipuncture / Unknown 07/17/2016 9:35 AM CDT 07/17/2016 9:35 AM CDT Narrative [facility] - 07/17/2016 12:01 PM CDT PSA NOTE: The PSA value should be used in conjunction with information available from clinical evaluation and other diagnostic procedures. us Brooklynn Moreno MD CHEMISTRY ORDERABLES Final Result [facility] [address] [place] [address] from Last 3 Months or Most Recently Relevant to Health Maintenance Insurance [facility] [address] MEDICARE Care Teams Teaching Aide Relationship Specialty Start Date End Date Harshal Szymanski DO Gastroenterology 01/12/17
--- OUTSIDE RECORDS SUMMARY | 2024-05-29 00:22 | XMS_ITS | Referral Summary ---
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
[2024-05-29 09:46] VITALS: BP 185/76; PULSE 69; RESP 15; TEMP 35.5; O2SAT 100; BMI 29.2
[2024-05-29] MEDS: LACTATED RINGERS 1,000 ML 150 ML IV CONT (09:57)
[2024-05-29 10:11] LABS: Glucose Point of Care 93 mg/dl (65-105)
--- NOTE | 2024-05-29 11:27 | P.PNAN_ITS ---
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 Patient Data Age: 74 Gender: M Height: 1.75 m Weight: 89.7 kg Last Vital Signs Temp 96 F L 05/29/24 09:46 Pulse 69 05/29/24 09:46 Resp 15 05/29/24 09:46 BP 185/76 H 05/29/24 09:46 Pulse Ox 100 05/29/24 09:46 O2 Del Method Room Air 05/29/24 09:46 Allergies Allergy/AdvReac Type Severity Reaction Status Date / Time No Known Allergies Allergy Verified 05/29/24 09:44 Home Medications ?Medication ?Instructions ?Recorded ?Confirmed ?Type omeprazole 40 mg capsule,delayed 40 mg PO .daily #30 caps 03/13/23 05/29/24 Rx release chlorthalidone 25 mg tablet 25 mg PO QAM 09/26/23 05/29/24 History aspirin 81 mg tablet,delayed 81 mg PO BID 14 days #28 tabs 12/20/23 05/29/24 Rx release levothyroxine 75 mcg tablet See Rx Instructions .Route 01/29/24 05/29/24 Rx .COMPLEX #100 tabs amlodipine 5 mg tablet See Rx Instructions .Route 02/05/24 05/29/24 Rx .COMPLEX #90 tabs irbesartan 300 mg tablet See Rx Instructions .Route 02/26/24 05/29/24 Rx .COMPLEX #90 tabs hydralazine 100 mg tablet See Rx Instructions .Route 03/24/24 05/29/24 Rx .COMPLEX #180 tabs metformin 500 mg tablet See Rx Instructions .Route 04/04/24 05/29/24 Rx .COMPLEX #180 tabs tamsulosin 0.4 mg capsule See Rx Instructions .Route 04/07/24 05/29/24 Rx .COMPLEX #90 caps dutasteride 0.5 mg capsule See Rx Instructions .Route 04/24/24 05/29/24 Rx .COMPLEX #90 caps glimepiride 1 mg tablet See Rx Instructions .Route 04/24/24 05/29/24 Rx .COMPLEX #180 tabs metoprolol succinate 50 mg 50 mg PO QAM #100 tabs 05/13/24 05/29/24 Rx tablet,extended release 24 hr atorvastatin 20 mg tablet See Rx Instructions .Route 05/19/24 05/29/24 Rx .COMPLEX #100 tabs Laboratory Tests 05/29/24 10:09 POC Capillary Glucose 93 mg/dl (65-105) Patient hx anesthesia problems: none Family hx anesthesia problems: none Results Review: All pre-operative results and documents have been reviewed as part of the pre- operative evaluation. [facility] Past Medical History Medical History Hypothyroidism Benign prostatic hyperplasia Chronic kidney disease, stage 3 Gastroesophageal reflux disease Deep vein thrombosis of left lower extremity (2006) Type 2 diabetes mellitus Hypertension Anemia of chronic disease Vo esophagus Dyslipidemia Bilateral cataracts Surgical History Surgical History History of vasectomy History of detached retina repair (2022) History of inferior vena caval filter placement History of arthroplasty of right knee (12/20/23) History of arthroplasty of left knee (04/26/23) History of umbilical hernia repair History of appendectomy Family History Family History Father Acute myocardial infarction, Onset Age: 70 Mother Hypertension Other Diabetes mellitus Social History Social History Social History: Surrogate medical decision maker: Whit Jarvis, spouse. Code status: Full code. Smoking status: Never smoker Second hand tobacco smoke exposure: No Alcohol intake: never Substance use: never Substance use type: does not use Do You Feel Safe in your Home?: Yes Lack of Transportation: No Lack of Food: Never True Current Housing: I Have Housing Concerned About Future Housing: No Difficulty Paying Gas/Electric Bills: No Difficulty Paying for Meds: No Currently Unemployed: No Education: High School Diploma/GED Difficulty w/ Childcare or Family Care: No Living arrangements: with family Occupation/Education: retired Gender identity (if verbalized by the patient): Male Sexual Orientation (if Verbalized by the Patient): Straight or Heterosexual Spiritual care concerns: No Exam Day of Procedure 05/29/24 11:27 Patient weight: overweight Heart: regular rate and rhythm Lungs: clear to auscultation Airway: Mallampati scale class II
--- NOTE | 2024-05-29 11:29 | P.PNAN_ITS ---
Anes - Eval Final PreProcedure Day of Procedure 05/29/24 11:29 Patient weight: obese Heart: regular rate and rhythm Lungs: clear to auscultation Airway: Mallampati scale class II Neurological: alert and oriented Last oral intake: >/= 8 hours ASA classification: III Emergent: no Anesthetic plan: proceed Anesthesia type and monitoring: general GIVS and standard monitoring Results Review: All pre-operative results and documents have been reviewed as part of the pre- operative evaluation. Informed Consent: The patient's anesthetic plan and its attendant risks and benefits were discussed with the patient/family/POA. Questions were solicited and answers provided to the satisfaction of the patient/family/POA.
--- NOTE | 2024-05-29 11:32 | PM.IMHP ---
H&P: [facility] History of Present Illness Date/Time: 05/29/24 11:32 Chief Complaint: GERD- history of Vo's esophagus Narrative: The patient's last EGD was in 2022, finding a 5 cm Vo's esophagus. Biopsy showed no dysplasia. He has a hiatal hernia and is taking omeprazole once a day, with good control of GERD. He is here for follow-up EGD. Review of Systems Review of Systems: All systems reviewed & are unremarkable except as noted in HPI and below PMFSH Past Medical History Medical History Hypothyroidism Benign prostatic hyperplasia Chronic kidney disease, stage 3 Gastroesophageal reflux disease Deep vein thrombosis of left lower extremity (2006) Type 2 diabetes mellitus Hypertension Anemia of chronic disease Vo esophagus Dyslipidemia Bilateral cataracts Surgical History Surgical History History of vasectomy History of detached retina repair (2022) History of inferior vena caval filter placement History of arthroplasty of right knee (12/20/23) History of arthroplasty of left knee (04/26/23) History of umbilical hernia repair History of appendectomy Family History Family History Father Acute myocardial infarction, Onset Age: 70 Mother Hypertension Other Diabetes mellitus Social History Social History Social History: Surrogate medical decision maker: Whit Jarvis, spouse. Code status: Full code. Smoking status: Never smoker Second hand tobacco smoke exposure: No Alcohol intake: never Substance use: never Substance use type: does not use Do You Feel Safe in your Home?: Yes Lack of Transportation: No Lack of Food: Never True Current Housing: I Have Housing Concerned About Future Housing: No Difficulty Paying Gas/Electric Bills: No Difficulty Paying for Meds: No Currently Unemployed: No Education: High School Diploma/GED Difficulty w/ Childcare or Family Care: No Living arrangements: with family Occupation/Education: retired Gender identity (if verbalized by the patient): Male Sexual Orientation (if Verbalized by the Patient): Straight or Heterosexual Spiritual care concerns: No Meds Home Medications and Allergies Home Medications ?Medication ?Instructions ?Recorded ?Confirmed ?Type omeprazole 40 mg capsule,delayed 40 mg PO .daily #30 caps 03/13/23 05/29/24 Rx release chlorthalidone 25 mg tablet 25 mg PO QAM 09/26/23 05/29/24 History aspirin 81 mg tablet,delayed 81 mg PO BID 14 days #28 tabs 12/20/23 05/29/24 Rx release levothyroxine 75 mcg tablet See Rx Instructions .Route 01/29/24 05/29/24 Rx .COMPLEX #100 tabs amlodipine 5 mg tablet See Rx Instructions .Route 02/05/24 05/29/24 Rx .COMPLEX #90 tabs irbesartan 300 mg tablet See Rx Instructions .Route 02/26/24 05/29/24 Rx .COMPLEX #90 tabs hydralazine 100 mg tablet See Rx Instructions .Route 03/24/24 05/29/24 Rx .COMPLEX #180 tabs metformin 500 mg tablet See Rx Instructions .Route 04/04/24 05/29/24 Rx .COMPLEX #180 tabs tamsulosin 0.4 mg capsule See Rx Instructions .Route 04/07/24 05/29/24 Rx .COMPLEX #90 caps dutasteride 0.5 mg capsule See Rx Instructions .Route 04/24/24 05/29/24 Rx .COMPLEX #90 caps glimepiride 1 mg tablet See Rx Instructions .Route 04/24/24 05/29/24 Rx .COMPLEX #180 tabs metoprolol succinate 50 mg 50 mg PO QAM #100 tabs 05/13/24 05/29/24 Rx tablet,extended release 24 hr atorvastatin 20 mg tablet See Rx Instructions .Route 05/19/24 05/29/24 Rx .COMPLEX #100 tabs Allergies Allergy/AdvReac Type Severity Reaction Status Date / Time No Known Allergies Allergy Verified 05/29/24 09:44 Vital Signs Vital Signs - 24 hr 05/29/24 09:46 Temperature 96 F L Pulse Rate 69 Respiratory Rate 15 Blood Pressure 185/76 H Pulse Oximetry 100 Oxygen Delivery Room Air Exam Const: General: cooperative and healthy appearing Resp: Effort & Inspection: normal respiratory effort and able to speak in complete sentences Auscultation: clear to auscultation bilaterally Cardio: Rate: regular rate Rhythm: regular rhythm GI: Inspection: normal to inspection GI Palp: No No hepatosplenomegaly present Auscultation: normal bowel sounds Rectal Exam: deferred Skin: General skin exam: normal color Psych: Appearance: grossly normal Mental Status: mental status grossly normal Assessment and Plan Assessment and plan (1) Vo esophagus: Qualifiers: Vo's esophagus type: without dysplasia Qualified Code(s): K22.70 - Vo's esophagus without dysplasia Code(s): K22.70 - Vo's esophagus without dysplasia Status: Acute Assessment and Plan: The patient is deemed a good candidate for the procedure. Consent signed. Will proceed. (2) Gastroesophageal reflux disease: Code(s): K21.9 - Gastro-esophageal reflux disease without esophagitis Status: Acute
[2024-05-29 11:54] VITALS: BP 100/52; PULSE 57; RESP 16; O2SAT 98
[2024-05-29 12:04] VITALS: BP 107/58; PULSE 61; RESP 16; O2SAT 99
[2024-05-29 12:14] VITALS: BP 138/74; PULSE 54; RESP 16; O2SAT 98
== END 2024-05-29 12:23 | disposition home or self-care (01) ==
PROVIDERS: PCP Family Medicine; Referring Provider Physician Assistant; Visit Provider Internal Medicine Gastroenterology
PROC: 0DJ08ZZ Inspection of Upper Intestinal Tract, Via Natural or Artificial Opening Endoscopic (ICD-10-PCS; CPT 43239; principal; 2024-05-29 11:00)
DX: K22.70 Barrett's esophagus without dysplasia (principal); K44.9 Diaphragmatic hernia without obstruction or gangrene; K21.9 Gastro-esophageal reflux disease without esophagitis; I12.9 Hypertensive chronic kidney disease with stage 1 through stage 4 chronic kidney disease, or unspecified chronic kidney disease; E11.22 Type 2 diabetes mellitus with diabetic chronic kidney disease; N18.30 Chronic kidney disease, stage 3 unspecified; E66.9 Obesity, unspecified; Z68.29 Body mass index [BMI] 29.0-29.9, adult
CPT/HCPCS: 43239; 82948; 88305; J2003; J2704; J7120

== ENCOUNTER 2024-06-30 09:54 | Outpatient (CLI) | payer MEDICARE, SELFPAY ==
[2024-06-30 10:24] LABS: Hematocrit 34.8 % (42.0-52.0); Hemoglobin 10.9 g/dL (14.0-18.0); Mean Corpuscular HGB Conc 31.3 g/dl (32-36); Mean Corpuscular Hemoglobin 28.4 pg (26-34); Mean Corpuscular Volume 90.6 fl (80-100); Mean Platelet Volume 11.7 fl (7.4-10.4); Platelet Count Result 218 k/mm3 (150-375); Red Blood Count 3.84 M/mm3 (4.6-6.20); White Blood Count 8.5 K/mm3 (4.5-10.0)
[2024-06-30 10:26] LABS: Add Urine Microscopic? NO; Appearance Urine Clear (Clear); Bilirubin Urine Negative (Negative); Blood Urine Negative (Negative); Color Urine Yellow (Yellow); Glucose Urine UA Negative (Negative); Ketones Urine Negative (Negative); Leukocyte Esterase Ur Negative LEU/UL (Negative); Nitrate Urine Negative (Negative); Protein Urine Negative (Negative); Specific Grav Ur 1.012 (1.001-1.035); Urobilinogen Urine 0.2 mg/dL (<2.0)
[2024-06-30 10:56] LABS: Alanine Aminotransferase 30 U/L (6-50); Albumin Level 4.6 g/dL (3.5-5.1); Alkaline Phosphatase 131 U/L (38-126); Anion Gap 12 mmol/L (4-12); Aspartate Amino Transferase 27 U/L (17-59); Bilirubin,Total 0.5 mg/dL (0.2-1.3); Blood Urea Nitrogen 36 mg/dL (9-20); Calcium 9.6 mg/dL (8.4-10.2); Carbon Dioxide 21 mmol/L (22-30); Chloride 107 mmol/L (98-107); Cholesterol 153 mg/dL (0-200); Estimated Glomerular Filt Rate 36; Glucose 100 mg/dL (65-110); HDL Direct 42 mg/dL; Sodium 140 mmol/L (137-145); Triglycerides 235 mg/dL (<150)
[2024-06-30 11:06] LABS: LDL Cholesterol Direct 68 mg/dL
--- OUTSIDE RECORDS SUMMARY | 2024-06-30 11:26 | XMS_ITS | Clinical Summary ---
Author Organization [facility] Address [address], [facility] [address] [place] [address] Phone Care Team Providers Care Mica Miner Blasting Name Role Phone Harshal Szymanski DO Unavailable [phone] Allergies No known active allergies Medications [...] 6.0 % 11/05/2017 12:56 PM CDT [facility] Est Average Glucose 182.9 mg/dL 11/05/2017 12:56 PM CDT [facility] Blood specimen (specimen) Venipuncture / Unknown 11/05/2017 8:47 AM CDT 11/05/2017 8:48 AM CDT Narrative [facility] - 11/05/2017 12:56 PM CDT HEMOGLOBIN A1C: DIABETIC PATIENTS: WELL-CONTROLLED: 6.2 - 7.0 INTERMEDIATE WELL-CONTROLLED: 7.0 - 9.0 POORLY-CONTROLLED: >9.0 us Brooklynn Moreno MD CHEMISTRY ORDERABLES Final Result [facility] [address] [place] [address] * (ABNORMAL) CMP (COMPREHENSIVE METABOLIC PANEL) (11/05/2017 8:47 AM CDT) SODIUM 140 136 - 144 mmol/L 11/05/2017 1:25 PM CDT [facility] POTASSIUM 4.3 3.5 - 5.1 mmol/L 11/05/2017 1:25 PM CDT [facility] CHLORIDE 103 100 - 110 mmol/L 11/05/2017 1:25 PM CDT [facility] CO2, VENOUS 26 22 - 32 mmol/L 11/05/2017 1:25 PM CDT [facility] ANION GAP 15.3 8.0 - 20.0 mmol/L 11/05/2017 1:25 PM CDT [facility] GLUCOSE 165(H) 70 - 99 mg/dL 11/05/2017 1:25 PM CDT [facility] BUN 14 8 - 23 mg/dL 11/05/2017 1:25 PM CDT [facility] CREATININE, BLOOD 0.85 0.80 - 1.30 mg/dL 11/05/2017 1:25 PM CDT [facility] BUN/CREATININE RATIO 16 12 - 20 ratio 11/05/2017 1:25 PM CDT [facility] TOTAL PROTEIN 8.0 6.0 - 8.3 g/dL 11/05/2017 1:25 PM CDT [facility] ALBUMIN 4.5 3.5 - 5.2 g/dL 11/05/2017 1:25 PM CDT [facility] Comment: The colormetric methods used for the determination of Albumin may lead to falsely elevated test results in patients suffering from renal failure or insufficiency due to interference with other proteins. A/G RATIO 1.3 1.0 - 2.0 11/05/2017 1:25 PM CDT [facility] CALCIUM 9.8 8.9 - 10.3 mg/dL 11/05/2017 1:25 PM CDT [facility] T BILI 0.6 <=1.2 mg/dL 11/05/2017 1:25 PM CDT [facility] SGOT (AST) 34 <=40 U/L 11/05/2017 1:25 PM CDT [facility] SGPT (ALT) 38 <=41 U/L 11/05/2017 1:25 PM CDT [facility] ALKALINE PHOSPHATASE 89 40 - 130 U/L 11/05/2017 1:25 PM CDT [facility] GFR, EST. NONAFRICAN >60 >=60 11/05/2017 1:25 PM CDT [facility] GFR, EST. >60 >=60 018 1:25 PM CDT [facility] Comment: Creatinine Clearance is the preferred criteria for selecting drug dose adjustments in renally impaired patients. The GFR is provided as additional pertinent clinical information. GFR is reported in mL/min/1.73 sq m. Blood specimen (specimen) Venipuncture / Unknown 11/05/2017 8:47 AM CDT 11/05/2017 8:48 AM CDT us Brooklynn Moreno MD CHEMISTRY ORDERABLES Final Result [facility] [address] [place] [address] * HM COLONOSCOPY (01/11/2017) us Brooklynn Moreno MD PROCEDURE/MINOR SURGICAL OR DERABLES Final Result * PSA SCREEN (07/17/2016 9:35 AM CDT) PSA SCREEN, TOTAL 2.55 0.00 - 4.00 ng/mL 07/17/2016 12:01 PM CDT [facility] Blood specimen (specimen) Venipuncture / Unknown 07/17/2016 9:35 AM CDT 07/17/2016 9:35 AM CDT Narrative [facility] - 07/17/2016 12:01 PM CDT PSA NOTE: The PSA value should be used in conjunction with information available from clinical evaluation and other diagnostic procedures. us Brooklynn Moreno MD CHEMISTRY ORDERABLES Final Result [facility] [address] [place] [address] from Last 3 Months or Most Recently Relevant to Health Maintenance Insurance [facility] [address] [address] MEDICARE Care Teams Mica Miner Blasting Relationship Specialty Start Date End Date Harshal Szymanski DO Gastroenterology 01/12/17
--- OUTSIDE RECORDS SUMMARY | 2024-06-30 11:26 | XMS_ITS | Continuity of Care Document ---
Author Organization [facility] Address [address] [place] [address] Phone Care Team Providers Care Palliative Senior Np Name Role Phone Gagnon OD, Harshal Unavailable Unavailable Procedures Procedure Date CL Replacement - Vist[facility] Disp W/BW Soft [facility] CL Replacement - Vistakon Disp W/BW Soft [facility] Eye Exam & Treatment Refraction Advance Directives Directive Yes / No Effective Date File Name No Information Encounters Encounter Description Practice Location Reason(s) For Visit Diagnoses Date Provider Providers Copied on Encounter [facility], [address] [place] [address] [address], [place], [place], [id number], tel:[phone] [facility] No Information 8-200 7 Gagnon OD Harshal. [address], [place], [place], [facility], . tel:[phone] [facility], [address] [place] [address] [address], [place], [place], [id number], [place] tel:[phone] [facility] No Information 1-200 7 Gagnon OD Harshal. [address], [place], [place], [facility], . tel:[phone] [facility], [address] [place] [address] [address], [place], [place], [id number], tel:[phone] [facility] No Information 9-200 7 Gagnon OD Harshal. [address], [place], [address], [place]. tel:[phone] Family History Family Member Type Diagnosis Age At Onset No Information Payers Payer name Insurance type Covered republican ID Authoriza tion(s) No Information Social History [...]
--- OUTSIDE RECORDS SUMMARY | 2024-06-30 11:26 | XMS_ITS | Clinical Summary ---
Author Organization [facility] [address] [facility] [address] Address [address] [place] [address] Care Team Providers Care Customer Care Voice Consultant Name Role Phone Shawnee Morris MD Primary [...] on file Legal Sex Male 12:47 AM DATA VIRTUALIZATION CONSULTANT Gender Identity Not on file Sexual Orientation Not on file Obstetrics History Plan of Treatment Not on file Insurance MEDICARE Care Teams Customer Care Voice Consultant Relationship Specialty Start Date End Date Shawnee Morris MD [address] [facility] [address] [place] [address] PCP - General Family Medicine 08/06/20
--- OUTSIDE RECORDS SUMMARY | 2024-06-30 11:26 | XMS_ITS | Referral Summary ---
Author Organization [facility] [address] [facility] [address] Address [address] [place] [address] Care Team Providers Care Sustainability Coordinator Name Role Phone Shawnee Morris MD Primary Care Provider Allergies No known active allergies Social History Tobacco Use Types Packs/Day Years Used Date Smoking Tobacco: Never Assessed Alcohol Use Standard Drinks/Week Comments No 0 (1 standard drink = 0.6 oz pur e alcohol) Sex and Gender Information Value Date Recorded Sex Assigned at Not on file Legal Sex Male 12:47 AM DOCUMENT REVIEW SPECIALIST Gender Identity Not on file Sexual Orientation Not on file Plan of Treatment Not on file Insurance MEDICARE Care Teams Sustainability Coordinator Relationship Specialty Start Date End Date Shawnee Morris MD [address] [facility] [address] [place] [address] PCP - General Family Medicine 08/06/20
[2024-06-30 12:32] LABS: Hemoglobin A1C 5.8 % (<5.7)
[2024-06-30 23:27] LABS: Creatinine Urine 80.8 mg/dL
[2024-06-30 23:34] LABS: Microalbumin Urine Random 8.9 mg/L (0-16.7)
== END 2024-06-30 09:55 | disposition home or self-care (01) ==
PROVIDERS: PCP Family Medicine; Visit Provider Physician Assistant Medical
DX: I12.9 Hypertensive chronic kidney disease with stage 1 through stage 4 chronic kidney disease, or unspecified chronic kidney disease (principal); E11.22 Type 2 diabetes mellitus with diabetic chronic kidney disease; N18.9 Chronic kidney disease, unspecified; D63.8 Anemia in other chronic diseases classified elsewhere; E03.9 Hypothyroidism, unspecified; E78.2 Mixed hyperlipidemia; Z12.5 Encounter for screening for malignant neoplasm of prostate
CPT/HCPCS: 36415; 80053; 80061; 81003; 82043; 83036; 84153; 84443; 85027; G0103

== ENCOUNTER 2024-07-23 08:36 | Outpatient (CLI) | payer MEDICARE, SELFPAY ==
--- OUTSIDE RECORDS SUMMARY | 2024-07-23 08:53 | XMS_ITS | Clinical Summary ---
Author Organization [facility] Address [address], [facility] [address] [place] [address] Phone Care Team Providers Care Briefcase Sewer Name Role Phone Harshal Szymanski DO Unavailable [phone] Allergies No known active allergies Medications [...] 6.0 % 11/05/2017 12:56 PM CDT [facility] Est Average Glucose 182.9 mg/dL 11/05/2017 12:56 PM CDT [facility] Blood specimen (specimen) Venipuncture / Unknown 11/05/2017 8:47 AM CDT 11/05/2017 8:48 AM CDT Narrative [facility] - 11/05/2017 12:56 PM CDT HEMOGLOBIN A1C: DIABETIC PATIENTS: WELL-CONTROLLED: 6.2 - 7.0 INTERMEDIATE WELL-CONTROLLED: 7.0 - 9.0 POORLY-CONTROLLED: >9.0 us Brooklynn Moreno MD CHEMISTRY ORDERABLES Final Result [facility] [address] [place] [address] * (ABNORMAL) CMP (COMPREHENSIVE METABOLIC PANEL) (11/05/2017 8:47 AM CDT) SODIUM 140 136 - 144 mmol/L 11/05/2017 1:25 PM CDT [facility] POTASSIUM 4.3 3.5 - 5.1 mmol/L 11/05/2017 1:25 PM CDT [facility] CHLORIDE 103 100 - 110 mmol/L 11/05/2017 1:25 PM CDT [facility] CO2, VENOUS 26 22 - 32 mmol/L 11/05/2017 1:25 PM CDT [facility] ANION GAP 15.3 8.0 - 20.0 mmol/L 11/05/2017 1:25 PM CDT [facility] GLUCOSE 165(H) 70 - 99 mg/dL 11/05/2017 1:25 PM CDT [facility] BUN 14 8 - 23 mg/dL 11/05/2017 1:25 PM CDT [facility] CREATININE, BLOOD 0.85 0.80 - 1.30 mg/dL 11/05/2017 1:25 PM CDT [facility] BUN/CREATININE RATIO 16 12 - 20 ratio 11/05/2017 1:25 PM CDT [facility] TOTAL PROTEIN 8.0 6.0 - 8.3 g/dL 11/05/2017 1:25 PM CDT [facility] ALBUMIN 4.5 3.5 - 5.2 g/dL 11/05/2017 1:25 PM CDT [facility] Comment: The colormetric methods used for the determination of Albumin may lead to falsely elevated test results in patients suffering from renal failure or insufficiency due to interference with other proteins. A/G RATIO 1.3 1.0 - 2.0 11/05/2017 1:25 PM CDT [facility] CALCIUM 9.8 8.9 - 10.3 mg/dL 11/05/2017 1:25 PM CDT [facility] T BILI 0.6 <=1.2 mg/dL 11/05/2017 1:25 PM CDT [facility] SGOT (AST) 34 <=40 U/L 11/05/2017 1:25 PM CDT [facility] SGPT (ALT) 38 <=41 U/L 11/05/2017 1:25 PM CDT [facility] ALKALINE PHOSPHATASE 89 40 - 130 U/L 11/05/2017 1:25 PM CDT [facility] GFR, EST. NONAFRICAN >60 >=60 11/05/2017 1:25 PM CDT [facility] GFR, EST. >60 >=60 018 1:25 PM CDT [facility] Comment: Creatinine Clearance is the preferred criteria for selecting drug dose adjustments in renally impaired patients. The GFR is provided as additional pertinent clinical information. GFR is reported in mL/min/1.73 sq m. Blood specimen (specimen) Venipuncture / Unknown 11/05/2017 8:47 AM CDT 11/05/2017 8:48 AM CDT us Brooklynn Moreno MD CHEMISTRY ORDERABLES Final Result [facility] [address] [place] [address] * HM COLONOSCOPY (01/11/2017) us Brooklynn Moreno MD PROCEDURE/MINOR SURGICAL OR DERABLES Final Result * PSA SCREEN (07/17/2016 9:35 AM CDT) PSA SCREEN, TOTAL 2.55 0.00 - 4.00 ng/mL 07/17/2016 12:01 PM CDT [facility] Blood specimen (specimen) Venipuncture / Unknown 07/17/2016 9:35 AM CDT 07/17/2016 9:35 AM CDT Narrative [facility] - 07/17/2016 12:01 PM CDT PSA NOTE: The PSA value should be used in conjunction with information available from clinical evaluation and other diagnostic procedures. us Brooklynn Moreno MD CHEMISTRY ORDERABLES Final Result [facility] [address] [place] [address] from Last 3 Months or Most Recently Relevant to Health Maintenance Insurance [facility] [address] MEDICARE Care Teams Briefcase Sewer Relationship Specialty Start Date End Date Harshal Szymanski DO Gastroenterology 01/12/17
--- OUTSIDE RECORDS SUMMARY | 2024-07-23 08:53 | XMS_ITS | Clinical Summary ---
Author Organization [facility] [address] [facility] [address] Address [address] [place] [address] Care Team Providers Care Cutter Hand Name Role Phone Shawnee Morris MD Primary [...] on file Legal Sex Male 12:47 AM COMMUNICATION COORDINATOR Gender Identity Not on file Sexual Orientation Not on file Obstetrics History Plan of Treatment Not on file Insurance MEDICARE Care Teams Cutter Hand Relationship Specialty Start Date End Date Shawnee Morris MD [address] [facility] [address] [place] [address] PCP - General Family Medicine 08/06/20
--- OUTSIDE RECORDS SUMMARY | 2024-07-23 08:53 | XMS_ITS | Referral Summary ---
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
--- OUTSIDE RECORDS SUMMARY | 2024-07-23 08:53 | XMS_ITS | Continuity of Care Document ---
Author Organization [facility] Address [address] [place] [address] Phone Care Team Providers Care Pie Crust Mixer Name Role Phone Gagnon OD, Harshal Unavailable Unavailable Procedures Procedure Date CL Replacement - Vistakon Disp W/BW Soft [facility] Medical CL Replacement - Vistakon Disp W/BW Soft [facility] Medical Eye Exam & Treatment Refraction Advance Directives Directive Yes / No Effective Date File Name No Information Encounters Encounter Description Practice Location Reason(s) For Visit Diagnoses Date Provider Providers Copied on Encounter [facility], [address] [place] [address] [address], [place], [place], [id number], tel:[phone] [facility] No Information 8-200 7 Gagnon OD Harshal. [address], [place], [place], [facility], . tel:[phone] [facility], [address] [place] [address] [address], [place], [place], [id number], [place] tel:[phone] [facility] No Information 1-200 7 Gagnon OD Harshal. [address], [place], [place], [facility], . tel:[phone] [facility], [address] [place] [address] [address], [place], [place], [id number], tel:[phone] [facility] No Information 9-200 7 Gagnon OD Harshal. [address], [place], [address], [place]. tel:[phone] Family History Family Member Type Diagnosis Age At Onset No Information Payers Payer name Insurance type Covered constitution party ID Authoriza tion(s) No Information Social [...]
[2024-07-23 09:32] LABS: Creatinine Urine 66.3 mg/dL; Total Protein Urine Random 10 mg/dL; Ur Ttl Prot Creatinine Ratio 0.15 mg/mg (0-0.20)
[2024-07-23 09:36] LABS: Albumin Level 4.8 g/dL (3.5-5.1); Anion Gap 16 mmol/L (4-12); Blood Urea Nitrogen 43 mg/dL (9-20); Calcium 9.8 mg/dL (8.4-10.2); Carbon Dioxide 20 mmol/L (22-30); Chloride 104 mmol/L (98-107); Estimated Glomerular Filt Rate 30; Glucose 91 mg/dL (65-110); Potassium 5.1 mmol/L (3.4-5.0); Sodium 140 mmol/L (137-145)
== END 2024-07-23 08:37 | disposition home or self-care (01) ==
PROVIDERS: PCP Family Medicine; Visit Provider Internal Medicine Nephrology
DX: N25.81 Secondary hyperparathyroidism of renal origin (principal); I12.9 Hypertensive chronic kidney disease with stage 1 through stage 4 chronic kidney disease, or unspecified chronic kidney disease; E11.22 Type 2 diabetes mellitus with diabetic chronic kidney disease; N18.32 Chronic kidney disease, stage 3b; E55.9 Vitamin D deficiency, unspecified
CPT/HCPCS: 36415; 80069; 82306; 82570; 83970; 84156

== ENCOUNTER 2024-08-08 07:50 | Outpatient (CLI) | payer MEDICARE, SELFPAY ==
--- OUTSIDE RECORDS SUMMARY | 2024-08-08 07:53 | XMS_ITS | Continuity of Care Document ---
Author Organization [facility] Address [address] [place] [address] Phone Care Team Providers Care Casing In Line Setter Name Role Phone Gagnon OD, Harshal Unavailable Unavailable Procedures Procedure Date CL Replacement - Vistakon Disp W/BW Soft [facility] Medical CL Replacement - Vistakon Disp W/BW Soft [facility] Medical Eye Exam & Treatment Refraction Advance Directives Directive Yes / No Effective Date File Name No Information Encounters Encounter Description Practice Location Reason(s) For Visit Diagnoses Date Provider Providers Copied on Encounter [facility], [address] [place] [address] [address], [place], [place], [id number], tel:[phone] SEC [facility] No Information 8-200 7 Gagnon OD Harshal. [address], [place], [place], [facility], . tel:[phone] [facility], [address] [place] [address] [address], [place], [place], [id number], [place] tel:[phone] [facility] No Information 1-200 7 Gagnon OD Harshal. [address], [place], [place], [facility], . tel:[phone] [facility], [address] [place] [address] [address], [place], [place], [id number], tel:[phone] [facility] No Information 9-200 7 Gagnon OD Harshal. [address], [place], [address], [place]. tel:[phone] Family History Family Member Type Diagnosis Age [...]
--- OUTSIDE RECORDS SUMMARY | 2024-08-08 07:53 | XMS_ITS | Referral Summary ---
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
--- OUTSIDE RECORDS SUMMARY | 2024-08-08 07:53 | XMS_ITS | Clinical Summary ---
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
--- OUTSIDE RECORDS SUMMARY | 2024-08-08 07:53 | XMS_ITS | Clinical Summary ---
Author Organization [facility] Address [address], [facility] [address] [place] [address] Phone Care Team Providers Care Cloud Developer Name Role Phone Harshal Szymanski DO Unavailable [phone] Allergies No known active allergies Medications [...] 6.0 % 11/05/2017 12:56 PM CDT [facility] Est Average Glucose 182.9 mg/dL 11/05/2017 12:56 PM CDT [facility] Blood specimen (specimen) Venipuncture / Unknown 11/05/2017 8:47 AM CDT 11/05/2017 8:48 AM CDT Narrative [facility] - 11/05/2017 12:56 PM CDT HEMOGLOBIN A1C: DIABETIC PATIENTS: WELL-CONTROLLED: 6.2 - 7.0 INTERMEDIATE WELL-CONTROLLED: 7.0 - 9.0 POORLY-CONTROLLED: >9.0 us Brooklynn Moreno MD CHEMISTRY ORDERABLES Final Result [facility] [address] [place] [address] * (ABNORMAL) CMP (COMPREHENSIVE METABOLIC PANEL) (11/05/2017 8:47 AM CDT) SODIUM 140 136 - 144 mmol/L 11/05/2017 1:25 PM CDT [facility] POTASSIUM 4.3 3.5 - 5.1 mmol/L 11/05/2017 1:25 PM CDT [facility] CHLORIDE 103 100 - 110 mmol/L 11/05/2017 1:25 PM CDT [facility] CO2, VENOUS 26 22 - 32 mmol/L 11/05/2017 1:25 PM CDT [facility] ANION GAP 15.3 8.0 - 20.0 mmol/L 11/05/2017 1:25 PM CDT [facility] GLUCOSE 165(H) 70 - 99 mg/dL 11/05/2017 1:25 PM CDT [facility] BUN 14 8 - 23 mg/dL 11/05/2017 1:25 PM CDT [facility] CREATININE, BLOOD 0.85 0.80 - 1.30 mg/dL 11/05/2017 1:25 PM CDT [facility] BUN/CREATININE RATIO 16 12 - 20 ratio 11/05/2017 1:25 PM CDT [facility] TOTAL PROTEIN 8.0 6.0 - 8.3 g/dL 11/05/2017 1:25 PM CDT [facility] ALBUMIN 4.5 3.5 - 5.2 g/dL 11/05/2017 1:25 PM CDT [facility] Comment: The colormetric methods used for the determination of Albumin may lead to falsely elevated test results in patients suffering from renal failure or insufficiency due to interference with other proteins. A/G RATIO 1.3 1.0 - 2.0 11/05/2017 1:25 PM CDT [facility] CALCIUM 9.8 8.9 - 10.3 mg/dL 11/05/2017 1:25 PM CDT [facility] T BILI 0.6 <=1.2 mg/dL 11/05/2017 1:25 PM CDT [facility] SGOT (AST) 34 <=40 U/L 11/05/2017 1:25 PM CDT [facility] SGPT (ALT) 38 <=41 U/L 11/05/2017 1:25 PM CDT [facility] ALKALINE PHOSPHATASE 89 40 - 130 U/L 11/05/2017 1:25 PM CDT [facility] GFR, EST. NONAFRICAN >60 >=60 11/05/2017 1:25 PM CDT [facility] GFR, EST. >60 >=60 018 1:25 PM CDT [facility] Comment: Creatinine Clearance is the preferred criteria for selecting drug dose adjustments in renally impaired patients. The GFR is provided as additional pertinent clinical information. GFR is reported in mL/min/1.73 sq m. Blood specimen (specimen) Venipuncture / Unknown 11/05/2017 8:47 AM CDT 11/05/2017 8:48 AM CDT us Brooklynn Moreno MD CHEMISTRY ORDERABLES Final Result [facility] [address] [place] [address] * HM COLONOSCOPY (01/11/2017) us Brooklynn Moreno MD PROCEDURE/MINOR SURGICAL OR DERABLES Final Result * PSA SCREEN (07/17/2016 9:35 AM CDT) PSA SCREEN, TOTAL 2.55 0.00 - 4.00 ng/mL 07/17/2016 12:01 PM CDT [facility] Blood specimen (specimen) Venipuncture / Unknown 07/17/2016 9:35 AM CDT 07/17/2016 9:35 AM CDT Narrative [facility] - 07/17/2016 12:01 PM CDT PSA NOTE: The PSA value should be used in conjunction with information available from clinical evaluation and other diagnostic procedures. us Brooklynn Moreno MD CHEMISTRY ORDERABLES Final Result [facility] [address] [place] [address] from Last 3 Months or Most Recently Relevant to Health Maintenance Insurance [facility] [address] MEDICARE Care Teams Cloud Developer Relationship Specialty Start Date End Date Harshal Szymanski DO Gastroenterology 01/12/17
== END 2024-08-08 07:51 | disposition home or self-care (01) ==
LOC: ANHAUDASC 07:51
PROVIDERS: PCP Family Medicine; Visit Provider Otolaryngology
DX: H73.891 Other specified disorders of tympanic membrane, right ear (principal); H90.6 Mixed conductive and sensorineural hearing loss, bilateral; H69.92 Unspecified Eustachian tube disorder, left ear
CPT/HCPCS: 92557; 92567

== ENCOUNTER 2024-10-08 09:53 | Outpatient (CLI) | payer MEDICARE, SELFPAY ==
[2024-10-08 10:51] LABS: Hemoglobin A1C 5.6 % (<5.7)
--- OUTSIDE RECORDS SUMMARY | 2024-10-08 11:05 | XMS_ITS | Continuity of Care Document ---
Author Organization [facility] Address [address] [place] [address] Phone Care Team Providers Care Transfer And Line Up Worker Name Role Phone Gagnon OD, Harshal Unavailable Unavailable Procedures Procedure Date CL Replacement - Vistakon Disp W/BW Soft [facility] Medical CL Replacement - Vistakon Disp W/BW Soft [facility] Medical Eye Exam & Treatment Refraction Advance Directives Directive Yes / No Effective Date File Name No Information Encounters Encounter Description Practice Location Reason(s) For Visit Diagnoses Date Provider Providers Copied on Encounter [facility], [address] [place] [address] [address], [place], [place], [id number], tel:[phone] [facility] No Information 8-200 7 Gagnon OD Harshal. [address], [place], [place], [facility], . tel:[phone] [facility], [address] [place] [address] [address], [place], [place], [id number], [place] tel:[phone] [facility] No Information 1-200 7 Gagnon OD Harshal. [address], [place], [place], [facility], . tel:[phone] [facility], [address] [place] [address] [address], [place], [place], [id number], tel:[phone] [facility] No Information 9-200 7 Gagnon OD Harshal. [address], [place], [address], [place]. tel:[phone] Family History Family Member Type Diagnosis Age At Onset No Information Payers Payer name Insurance type Covered green party ID Authoriza tion(s) No Information Social [...]
--- OUTSIDE RECORDS SUMMARY | 2024-10-08 11:05 | XMS_ITS | Clinical Summary ---
Author Organization [facility] Address [address], [facility] [address] [place] [address] Phone Care Team Providers Care Night Guard Name Role Phone Harshal Szymanski DO Unavailable Allergies No known active allergies Medications aspirin [...] 8:31 AM CDT Height 175.3 cm (5' 9) 11/12/2017 8:31 AM CDT Body Mass Index 28.5 11/12/2017 8:31 AM CDT Plan of Treatment Health Maintenance Due Date Last Done Comments Diabetes: Eye Exam 1950 Diabetes: Foot Exam 1950 Hepatitis C Virus (HCV) Screening 1950 Cologuard 1995 Immunochemical Fecal Occult Blood 1995 Zoster Immunization (1 of 2) 2000 Diabetes: Hemoglobin A1c 05/08/2018 018, 05/01/2017, 10/31/2016, Additional history exists Diabetes: Nephropathy Screening 11/05/2018 11/05/2017, 11/05/2017, 05/01/2017, Additional history exists Td Immunization Every 10 Years (Adults With 1 Tdap) 03/11/2022 03/11/2012 SARS-COV-2 Immunization (1 - 2024-25 season) 2023 Influenza Immunization (Season Ended) 2024 05/08/2017, 05/24/2016 Respiratory Syncytial Virus (RSV) Immunization (Adult) (1 - 1-dose 75+ series) 2025 Colonoscopy 01/11/2027 01/11/2017 Colorectal Cancer Screening 01/11/2027 PSA Discussion Discontinued 07/17/2016 Pneumococcal Immunization (50+ years) Completed 11/12/2017, 11/07/2016 Pneumococcal Immunization Combined Discontinued 11/12/2017, 11/07/2016 Hepatitis B Immunization Aged Out No longer eligible based on patient's age to complete this topic Human Papillomavirus (HPV) Immunization Aged Out No longer eligible based [...] 6.0 % 11/05/2017 12:56 PM CDT [facility] Est Average Glucose 182.9 mg/dL 11/05/2017 12:56 PM CDT [facility] Blood specimen (specimen) Venipuncture / Unknown 11/05/2017 8:47 AM CDT 11/05/2017 8:48 AM CDT Narrative [facility] - 11/05/2017 12:56 PM CDT HEMOGLOBIN A1C: DIABETIC PATIENTS: WELL-CONTROLLED: 6.2 - 7.0 INTERMEDIATE WELL-CONTROLLED: 7.0 - 9.0 POORLY-CONTROLLED: >9.0 us Brooklynn Moreno MD CHEMISTRY ORDERABLES Final Result [facility] [address] [place] [address] * (ABNORMAL) CMP (COMPREHENSIVE METABOLIC PANEL) (11/05/2017 8:47 AM CDT) SODIUM 140 136 - 144 mmol/L 11/05/2017 1:25 PM CDT [facility] POTASSIUM 4.3 3.5 - 5.1 mmol/L 11/05/2017 1:25 PM CDT [facility] CHLORIDE 103 100 - 110 mmol/L 11/05/2017 1:25 PM CDT [facility] CO2, VENOUS 26 22 - 32 mmol/L 11/05/2017 1:25 PM CDT [facility] ANION GAP 15.3 8.0 - 20.0 mmol/L 11/05/2017 1:25 PM CDT [facility] GLUCOSE 165(H) 70 - 99 mg/dL 11/05/2017 1:25 PM CDT [facility] BUN 14 8 - 23 mg/dL 11/05/2017 1:25 PM CDT [facility] CREATININE, BLOOD 0.85 0.80 - 1.30 mg/dL 11/05/2017 1:25 PM CDT [facility] BUN/CREATININE RATIO 16 12 - 20 ratio 11/05/2017 1:25 PM CDT [facility] TOTAL PROTEIN 8.0 6.0 - 8.3 g/dL 11/05/2017 1:25 PM CDT [facility] ALBUMIN 4.5 3.5 - 5.2 g/dL 11/05/2017 1:25 PM CDT [facility] Comment: The colormetric methods used for the determination of Albumin may lead to falsely elevated test results in patients suffering from renal failure or insufficiency due to interference with other proteins. A/G RATIO 1.3 1.0 - 2.0 11/05/2017 1:25 PM CDT [facility] CALCIUM 9.8 8.9 - 10.3 mg/dL 11/05/2017 1:25 PM CDT [facility] T BILI 0.6 <=1.2 mg/dL 11/05/2017 1:25 PM CDT [facility] SGOT (AST) 34 <=40 U/L 11/05/2017 1:25 PM CDT [facility] SGPT (ALT) 38 <=41 U/L 11/05/2017 1:25 PM CDT [facility] ALKALINE PHOSPHATASE 89 40 - 130 U/L 11/05/2017 1:25 PM CDT [facility] GFR, EST. NONAFRICAN >60 >=60 11/05/2017 1:25 PM CDT [facility] GFR, EST. >60 >=60 018 1:25 PM CDT [facility] Comment: Creatinine Clearance is the preferred criteria for selecting drug dose adjustments in renally impaired patients. The GFR is provided as additional pertinent clinical information. GFR is reported in mL/min/1.73 sq m. Blood specimen (specimen) Venipuncture / Unknown 11/05/2017 8:47 AM CDT 11/05/2017 8:48 AM CDT us Brooklynn Moreno MD CHEMISTRY ORDERABLES Final Result [facility] [address] [place] [address] * HM COLONOSCOPY (01/11/2017) Brooklynn Moreno MD PROCEDURE/MINOR SURGICAL OR DERABLES Final Result * PSA SCREEN (07/17/2016 9:35 AM CDT) PSA SCREEN, TOTAL 2.55 0.00 - 4.00 ng/mL 07/17/2016 12:01 PM CDT [facility] Blood specimen (specimen) Venipuncture / Unknown 07/17/2016 9:35 AM CDT 07/17/2016 9:35 AM CDT Narrative [facility] - 07/17/2016 12:01 PM CDT PSA NOTE: The PSA value should be used in conjunction with information available from clinical evaluation and other diagnostic procedures. us Brooklynn Moreno MD CHEMISTRY ORDERABLES Final Result [facility] [address] [place] [address] from Last 3 Months or Most Recently Relevant to Health Maintenance Insurance MEDICARE Care Teams Night Guard Relationship Specialty Start Date End Date Harshal Szymanski DO Gastroenterology 01/12/17
--- OUTSIDE RECORDS SUMMARY | 2024-10-08 11:05 | XMS_ITS | Referral Summary ---
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
--- OUTSIDE RECORDS SUMMARY | 2024-10-08 11:05 | XMS_ITS | Clinical Summary ---
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
== END 2024-10-08 09:54 | disposition home or self-care (01) ==
LOC: ANHLAB 09:55
PROVIDERS: PCP Family Medicine; Visit Provider Family Medicine
DX: E11.22 Type 2 diabetes mellitus with diabetic chronic kidney disease (principal); N18.32 Chronic kidney disease, stage 3b
CPT/HCPCS: 36415; 83036

== ENCOUNTER 2024-11-20 08:32 | Outpatient (CLI) | payer MEDICARE, SELFPAY ==
--- OUTSIDE RECORDS SUMMARY | 2024-11-20 08:39 | XMS_ITS | Referral Summary ---
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
--- OUTSIDE RECORDS SUMMARY | 2024-11-20 08:39 | XMS_ITS | Clinical Summary ---
Author Organization [facility] Address [address], [facility] [address] [place] [address] Phone Care Team Providers Care Embedded Software Design Engineer Name Role Phone Harshal Szymanski DO Unavailable [phone] Allergies No known active allergies Medications aspirin [...] (1 - 2024-25 season) 2023 Influenza Immunization (#1) 2024 05/08/2017, 0 05/24/2016 Respiratory Syncytial Virus (RSV) Immunization (Adult) [...] % 11/05/2017 12:56 PM CDT [facility] Est Average Glucose 182.9 mg/dL 11/05/2017 12:56 PM CDT [facility] Blood specimen (specimen) Venipuncture / Unknown 11/05/2017 8:47 AM CDT 11/05/2017 8:48 AM CDT Narrative [facility] - 11/05/2017 12:56 PM CDT HEMOGLOBIN A1C: DIABETIC PATIENTS: WELL-CONTROLLED: 6.2 - 7.0 INTERMEDIATE WELL-CONTROLLED: 7.0 - 9.0 POORLY-CONTROLLED: >9.0 us Brooklynn Moreno MD CHEMISTRY ORDERABLES Final Result [facility] [address] [place] [address] * (ABNORMAL) CMP (COMPREHENSIVE METABOLIC PANEL) (11/05/2017 8:47 AM CDT) SODIUM 140 136 - 144 mmol/L 11/05/2017 1:25 PM CDT [facility] POTASSIUM 4.3 3.5 - 5.1 mmol/L 11/05/2017 1:25 PM CDT [facility] CHLORIDE 103 100 - 110 mmol/L 11/05/2017 1:25 PM CDT [facility] CO2, VENOUS 26 22 - 32 mmol/L 11/05/2017 1:25 PM CDT [facility] ANION GAP 15.3 8.0 - 20.0 mmol/L 11/05/2017 1:25 PM CDT [facility] GLUCOSE 165(H) 70 - 99 mg/dL 11/05/2017 1:25 PM CDT [facility] BUN 14 8 - 23 mg/dL 11/05/2017 1:25 PM CDT [facility] CREATININE, BLOOD 0.85 0.80 - 1.30 mg/dL 11/05/2017 1:25 PM CDT [facility] BUN/CREATININE RATIO 16 12 - 20 ratio 11/05/2017 1:25 PM CDT [facility] TOTAL PROTEIN 8.0 6.0 - 8.3 g/dL 11/05/2017 1:25 PM CDT [facility] ALBUMIN 4.5 3.5 - 5.2 g/dL 11/05/2017 1:25 PM CDT [facility] Comment: The colormetric methods used for the determination of Albumin may lead to falsely elevated test results in patients suffering from renal failure or insufficiency due to interference with other proteins. A/G RATIO 1.3 1.0 - 2.0 11/05/2017 1:25 PM CDT [facility] CALCIUM 9.8 8.9 - 10.3 mg/dL 11/05/2017 1:25 PM CDT [facility] T BILI 0.6 <=1.2 mg/dL 11/05/2017 1:25 PM CDT [facility] SGOT (AST) 34 <=40 U/L 11/05/2017 1:25 PM CDT [facility] SGPT (ALT) 38 <=41 U/L 11/05/2017 1:25 PM CDT [facility] ALKALINE PHOSPHATASE 89 40 - 130 U/L 11/05/2017 1:25 PM CDT [facility] GFR, EST. NONAFRICAN >60 >=60 11/05/2017 1:25 PM CDT [facility] GFR, EST. >60 >=60 018 1:25 PM CDT [facility] Comment: Creatinine Clearance is the preferred criteria for selecting drug dose adjustments in renally impaired patients. The GFR is provided as additional pertinent clinical information. GFR is reported in mL/min/1.73 sq m. Blood specimen (specimen) Venipuncture / Unknown 11/05/2017 8:47 AM CDT 11/05/2017 8:48 AM CDT us Brooklynn Moreno MD CHEMISTRY ORDERABLES Final Result [facility] [address] [place] [address] * HM COLONOSCOPY (01/11/2017) us Brooklynn Moreno MD PROCEDURE/MINOR SURGICAL OR DERABLES Final Result * PSA SCREEN (07/17/2016 9:35 AM CDT) PSA SCREEN, TOTAL 2.55 0.00 - 4.00 ng/mL 07/17/2016 12:01 PM CDT [facility] Blood specimen (specimen) Venipuncture / Unknown 07/17/2016 9:35 AM CDT 07/17/2016 9:35 AM CDT Narrative [facility] - 07/17/2016 12:01 PM CDT PSA NOTE: The PSA value should be used in conjunction with information available from clinical evaluation and other diagnostic procedures. us Brooklynn Moreno MD CHEMISTRY ORDERABLES Final Result [facility] [address] [place] [address] from Last 3 Months or Most Recently Relevant to Health Maintenance Insurance MEDICARE Care Teams Embedded Software Design Engineer Relationship Specialty Start Date End Date Harshal Szymanski DO Gastroenterology 01/12/17
--- OUTSIDE RECORDS SUMMARY | 2024-11-20 08:39 | XMS_ITS | Continuity of Care Document ---
Author Organization [facility] Address [address] [place] [address] Phone Care Team Providers Care Director Human Services Name Role Phone Gagnon OD, Harshal Unavailable Unavailable Procedures Procedure Date CL Replacement - Vistakon Disp W/BW Soft [facility] CL Replacement - Vistakon Disp W/BW Soft [facility] Medical Eye Exam & Treatment Refraction Advance Directives Directive Yes / No Effective Date File Name No Information Encounters Encounter Description Practice Location Reason(s) For Visit Diagnoses Date Provider Providers Copied on Encounter [facility], [address] [place] [address] [address], [place], [place], [id number], tel:[phone] [facility] No Information 8-200 7 Gagnon OD Harshal. [address], [place], [place], [facility], . tel:[phone] [facility], [address] [place] [address] [address], [place], [place], [id number], [place] tel:[phone] [facility] No Information 1-200 7 Gagnon OD Harshal. [address], [place], [place], [facility], . tel:[phone] [facility], [address] [place] [address] [address], [place], [place], [id number], tel:[phone] [facility] No Information 9-200 7 Gagnon OD Harshal. [address], [place], [address], [place]. tel:[phone] Family History Family Member Type Diagnosis Age [...]
--- OUTSIDE RECORDS SUMMARY | 2024-11-20 08:39 | XMS_ITS | Clinical Summary ---
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
[2024-11-20 09:32] LABS: Total Protein Urine Random 10 mg/dL; Ur Ttl Prot Creatinine Ratio 0.19 mg/mg (0-0.20)
[2024-11-20 09:39] LABS: Albumin Level 4.4 g/dL (3.5-5.1); Anion Gap 13 mmol/L (4-12); Blood Urea Nitrogen 41 mg/dL (9-20); Calcium 9.7 mg/dL (8.4-10.2); Carbon Dioxide 17 mmol/L (22-30); Chloride 108 mmol/L (98-107); Estimated Glomerular Filt Rate 38; Glucose 97 mg/dL (65-110); Potassium 5.0 mmol/L (3.4-5.0); Sodium 138 mmol/L (137-145)
== END 2024-11-20 08:33 | disposition home or self-care (01) ==
LOC: ANHLAB 08:33
PROVIDERS: PCP Family Medicine; Visit Provider Internal Medicine Nephrology
DX: I12.9 Hypertensive chronic kidney disease with stage 1 through stage 4 chronic kidney disease, or unspecified chronic kidney disease (principal); E11.22 Type 2 diabetes mellitus with diabetic chronic kidney disease; N18.32 Chronic kidney disease, stage 3b
CPT/HCPCS: 36415; 80069; 82570; 84156

== ENCOUNTER 2025-03-23 08:38 | Outpatient (CLI) | payer MEDICARE, SELFPAY ==
--- OUTSIDE RECORDS SUMMARY | 2025-03-23 09:00 | XMS_ITS | Clinical Summary ---
Author Organization [facility] Address [address], [facility] [address] [place] [address] Phone Care Team Providers Care Mat Cutter Name Role Phone Harshal Szymanski DO Unavailable [phone] Allergies No known active allergies Medications [...] 1995 Zoster Immunization (1 of 2) 2000 Medicare Initial AWV [id number] 04/23/2016 Diabetes: Hemoglobin A1c 05/08/2018 018, 05/01/2017, 10/31/2016, Additional history exists Diabetes: Nephropathy Screening 11/05/2018 11/05/2017, 11/05/2017, 05/01/2017, Additional history exists Td Immunization Every 10 Years (Adults With 1 Tdap) 03/11/2022 03/11/2012 Influenza Immunization (#1) 2024 05/08/2017, 0 05/24/2016 SARS-COV-2 Immunization ( season) 2024 Respiratory Syncytial Virus (RSV) Immunization (Adult) (1 [...] % 11/05/2017 12:56 PM CDT [facility] Est Average Glucose 182.9 mg/dL 11/05/2017 12:56 PM CDT [facility] Blood specimen (specimen) Venipuncture / Unknown 11/05/2017 8:47 AM CDT 11/05/2017 8:48 AM CDT Narrative [facility] - 11/05/2017 12:56 PM CDT HEMOGLOBIN A1C: DIABETIC PATIENTS: WELL-CONTROLLED: 6.2 - 7.0 INTERMEDIATE WELL-CONTROLLED: 7.0 - 9.0 POORLY-CONTROLLED: >9.0 us Brooklynn Moreno MD CHEMISTRY ORDERABLES Final Result [facility] [address] [place] [address] * (ABNORMAL) CMP (COMPREHENSIVE METABOLIC PANEL) (11/05/2017 8:47 AM CDT) SODIUM 140 136 - 144 mmol/L 11/05/2017 1:25 PM CDT [facility] POTASSIUM 4.3 3.5 - 5.1 mmol/L 11/05/2017 1:25 PM CDT [facility] CHLORIDE 103 100 - 110 mmol/L 11/05/2017 1:25 PM CDT [facility] CO2, VENOUS 26 22 - 32 mmol/L 11/05/2017 1:25 PM CDT [facility] ANION GAP 15.3 8.0 - 20.0 mmol/L 11/05/2017 1:25 PM CDT [facility] GLUCOSE 165(H) 70 - 99 mg/dL 11/05/2017 1:25 PM CDT [facility] BUN 14 8 - 23 mg/dL 11/05/2017 1:25 PM CDT [facility] CREATININE, BLOOD 0.85 0.80 - 1.30 mg/dL 11/05/2017 1:25 PM CDT [facility] BUN/CREATININE RATIO 16 12 - 20 ratio 11/05/2017 1:25 PM CDT [facility] TOTAL PROTEIN 8.0 6.0 - 8.3 g/dL 11/05/2017 1:25 PM CDT [facility] ALBUMIN 4.5 3.5 - 5.2 g/dL 11/05/2017 1:25 PM CDT [facility] Comment: The colormetric methods used for the determination of Albumin may lead to falsely elevated test results in patients suffering from renal failure or insufficiency due to interference with other proteins. A/G RATIO 1.3 1.0 - 2.0 11/05/2017 1:25 PM CDT [facility] CALCIUM 9.8 8.9 - 10.3 mg/dL 11/05/2017 1:25 PM CDT [facility] T BILI 0.6 <=1.2 mg/dL 11/05/2017 1:25 PM CDT [facility] SGOT (AST) 34 <=40 U/L 11/05/2017 1:25 PM CDT [facility] SGPT (ALT) 38 <=41 U/L 11/05/2017 1:25 PM CDT [facility] ALKALINE PHOSPHATASE 89 40 - 130 U/L 11/05/2017 1:25 PM CDT [facility] GFR, EST. NONAFRICAN >60 >=60 11/05/2017 1:25 PM CDT [facility] GFR, EST. >60 >=60 018 1:25 PM CDT [facility] Comment: Creatinine Clearance is the preferred criteria for selecting drug dose adjustments in renally impaired patients. The GFR is provided as additional pertinent clinical information. GFR is reported in mL/min/1.73 sq m. Blood specimen (specimen) Venipuncture / Unknown 11/05/2017 8:47 AM CDT 11/05/2017 8:48 AM CDT Brooklynn Moreno MD CHEMISTRY ORDERABLES Final Result [facility] [address] [place] [address] * HM COLONOSCOPY (01/11/2017) Brooklynn Moreno MD PROCEDURE/MINOR SURGICAL OR DERABLES Final Result * PSA SCREEN (07/17/2016 9:35 AM CDT) PSA SCREEN, TOTAL 2.55 0.00 - 4.00 ng/mL 07/17/2016 12:01 PM CDT [facility] Blood specimen (specimen) Venipuncture / Unknown 07/17/2016 9:35 AM CDT 07/17/2016 9:35 AM CDT Narrative [facility] - 07/17/2016 12:01 PM CDT PSA NOTE: The PSA value should be used in conjunction with information available from clinical evaluation and other diagnostic procedures. Brooklynn Moreno MD CHEMISTRY ORDERABLES Final Result [facility] [address] [place] [address] from Last 3 Months or Most Recently Relevant to Health Maintenance Insurance [facility] [address] MEDICARE Care Teams Mat Cutter Relationship Specialty Start Date End Date Harshal Szymanski DO Gastroenterology 01/12/17
--- OUTSIDE RECORDS SUMMARY | 2025-03-23 09:00 | XMS_ITS | Clinical Summary ---
Author Organization 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
[2025-03-23 10:29] LABS: Albumin Level 4.4 g/dL (3.5-5.1); Anion Gap 7 mmol/L (4-12); Blood Urea Nitrogen 32 mg/dL (9-20); Calcium 9.2 mg/dL (8.4-10.2); Carbon Dioxide 26 mmol/L (22-30); Chloride 106 mmol/L (98-107); Estimated Glomerular Filt Rate 31; Glucose 101 mg/dL (65-110); Potassium 4.2 mmol/L (3.4-5.0); Sodium 139 mmol/L (137-145)
[2025-03-23 10:42] LABS: Parathyroid Intact 50.1 pg/mL (14.5-75.2)
[2025-03-25 13:09] LABS: Albumin, U 58.7 % (.); Alpha-1-Globulin, U 5.2 % (.); Alpha-2-Globulin, U 9.5 % (.); Beta Globulin, U 17.0 % (.); Gamma Globulin, U 9.7 % (.)
== END 2025-03-23 08:39 | disposition home or self-care (01) ==
PROVIDERS: PCP Family Medicine; Visit Provider Internal Medicine Nephrology
DX: I12.9 Hypertensive chronic kidney disease with stage 1 through stage 4 chronic kidney disease, or unspecified chronic kidney disease (principal); N18.32 Chronic kidney disease, stage 3b; E11.22 Type 2 diabetes mellitus with diabetic chronic kidney disease; N25.81 Secondary hyperparathyroidism of renal origin; E55.9 Vitamin D deficiency, unspecified
CPT/HCPCS: 36415; 80069; 82306; 83970; 84156; 84166